=== PATIENT | female | born 1940 | race Two or more races ===

== ENCOUNTER 2024-05-01 11:05 | Inpatient (IN) | payer OTHER ==
[~2024-05-01] VITALS: Ht 152.4 cm; Wt 72.9 kg
[2024-05-01 11:17] VITALS: PULSE 97; RESP 16; O2SAT 91
--- NOTE | 2024-05-01 11:22 | ED.PDOC ---
GI ASSESSMENT HPI Comments 83 year old female brought in by EMS presents to the ED with a chief complaint of RUQ pain onset 4 days. Per EMS, patient was given Tylenol 1g in route. Patient states she was diagnosed with gallstones 2 years ago, was scheduled for a cholecystectomy but was not done due to her hypertension. Patient states she does not take HTN medication, usually elevates when she is at a hospital. Patient has been experiencing RUQ pain for the past 4 days as well as nausea, vomiting, diarrhea, and worsens when she eats. Denies chest pain, shortness of breath, fever, chills, headache, dizziness. No other symptoms or modifying factors present at this time. Chief Complaint: Abdominal Pain Time Seen by MD: 11:05 Primary Care Provider: UNKNOWN Reviewed Notes: Medications, Allergies Allergies: Coded Allergies: NO KNOWN ALLERGIES (Unverified , 05/01/24) Information Source: Patient, Emergency Med Personnel Mode of Arrival: EMS Timing: Days Duration: Since onset Prehospital treatment: None Quality: Sharp Severity: Moderate Recent: None Recent Hx of: None Pain Location: RUQ Modifying Factors: Nothing Associated sign and symptoms: Nausea, Vomiting, Diarrhea, Abdominal Pain Past Medical History PAST MEDICAL HISTORY: Gallstones Surgical History: Appendectomy RETAIL KEY HOLDER History: No Pertinent RETAIL KEY HOLDER History Family History Family History: Reviewed,noncontributory to illness, No family hx of Cancer, No family hx of DM, No family hx of Heart anjel, No family hx of HTN, No family hx ofKidney anjel, No family hx of Liver anjel, No family hx of Lung anjel, No family hx of Stroke Social History Smoker: Non-Smoker Alcohol: Denies ETOH Use Drugs: Denies Drug Use Lives In: Home Constitutional: denies: chills, diaphoresis, fatigue, fever, malaise, sweats, weakness, others EENTM: denies: blurred vision, double vision, ear bleeding, ear discharge, ear drainage, ear pain, ear ringing, eye pain, eye redness, hearing loss, mouth pain, mouth swelling, nasal discharge, nose bleeding, nose congestion, nose pain, photophobia, tearing, throat pain, throat swelling, voice changes, others Respiratory: denies: cough, hemoptysis, orthopnea, SOB at rest, shortness of breath, SOB with excertion, stridor, wheezing, others Cardiovascular: denies: chest pain, dizzy spells, diaphoresis, Dyspnea on exertion, edema, irregular heart beat, left arm pain, lightheadedness, palpitations, PND, syncope, others Gastrointestinal: reports: abdominal pain (RUQ), diarrhea, nausea, vomiting; denies: abdomen distended, blood streaked bowels, constipated, dysphagia, difficulty swallowing, hematemesis, melena, poor appetite, poor fluid intake, rectal bleeding, rectal pain, others Genitourinary: denies: abnormal vagina bleeding, burning, dyspareunia, dysuria, flank pain, frequency, hematuria, incontinence, pain, , vagina discharge, urgency, others Neurological: denies: dizziness, fainting, headache, left sided numbness, left sided weakness, numbness, paresthesia, pre-existing deficit, right sided numbn ess, right sided weakness, seizure, speech problems, tingling, tremors, weakness, others Musculoskeletal: denies: back pain, gout, joint pain, joint swelling, muscle pain, muscle stiffness, neck pain, others Integumetry: denies: bruises, change in color, change in hair/nails, dryness, laceration, lesions, lumps, rash, wounds, others Allergic/Immunocompromised: denies: Difficulty Healing, Frequent Infections, Hives, Itching, others Hematologic/Lymphatic: denies: anemia, blood clots, easy bleeding, easy bruising, swollen glands, others Endocrine: denies: excessive hunger, excessive sweating, excessive thirst, excessive urination, flushing, intolerance to cold, intolerance to heat, unexplained weight gain, unexplained weight loss, others Psychiatric: denies: anxiety, bipolar disorder, depression, hopeless, panic disorder, schizophrenia, sleepless, suicidal, others All Other Systems: Reviewed and Negative Physical Exam General Appearance: Moderate Distress, Normal HEENT: Normal ENT Inspection, Pharynx Normal, TMs Normal Neck: Full Range of Motion, Non-Tender, Normal, Normal Inspection Respiratory: Chest Non-Tender, Lungs Clear, No Accessory Muscle Use, No Respiratory Distress, Normal Breath Sounds Cardiovascular: No Edema, No JVD, No Murmur, No Gallop, Normal Peripheral Pulses, Regular Rate/Rhythm Breast Exam: Deferred Gastrointestinal: No Organomegaly, Non Tender, No Pulsatile Mass, Normal Bowel Sounds, Soft Genitalia: Deferred Pelvic: Deferred Rectal: Deferred Extremities: No calf tenderness, Normal capillary refill, Normal range of motion, Non-tender, No pedal edema Musculoskeletal : Apperance: Normal Neurologic: Alert, caul fat puller II-XII nml as Tested, No Motor Deficits, Normal Affect, Normal Mood, No Sensory Deficits Cerebellar Function: NOT DONE Reflexes: NOT DONE Skin: Dry, Normal Color, Warm Peripheral Pulses: 3+ Radial (R), 3+ Radial (L) Lymphatic: No Adenopathy Was a procedure done? Was a procedure done?: No GI differential Dx Differential Diagnosis: Constipation, Diverticular disease, Esophagitis, Gastritis/PUD, Gastroenteritis X-Ray, Labs, Meds, VS Vital Signs Date Time Temp Pulse Resp B/P (MAP) Pulse Ox O2 Delivery O2 Flow Rate FiO2 05/01/24 12:05 98.0 87 16 139/75 (96) 92 98.0 05/01/24 12:01 87 16 139/75 05/01/24 11:31 97 16 167/101 05/01/24 11:23 93 05/01/24 11:17 97 18 167/101 (123) 91 05/01/24 11:17 97 16 91 Room Air* 0 21 05/01/24 11:09 98.3 94 15 145/103 (117) 100 98.3 Lab Test 05/01/24 13:57 05/01/24 12:55 05/01/24 11:50 05/01/24 11:20 Range/Units Troponin I High Sensitivity Pending 6 </=34 ng/L Sodium Level 139 136-145 mmol/L Potassium Level 3.4 L 3.5-5.1 mmol/L Chloride Level 102 98-107 mmol/L Carbon Dioxide Level 28 20-31 mmol/L Anion Gap 9 5-15 Blood Urea Nitrogen 15 9-23 mg/dL Creatinine 0.84 0.550-1.02 mg/dL Glomerular Filtration Rate Calc 69 >90 mL/min BUN/Creatinine Ratio 17.9 10.0-20.0 Serum Glucose 120 H 74-106 mg/dL Lactic Acid Level 1.3 0.4-2.0 mmol/L Calcium Level 9.6 8.7-10.4 mg/dL Total Bilirubin 2.2 H 0.2-1.0 mg/dL Aspartate Amino Transferase (AST) 304 H 13-40 U/L Alanine Aminotransferase (ALT) 148 H 7-40 U/L Alkaline Phosphatase 110 46-116 U/L Total Protein 6.8 5.7-8.2 g/dL Albumin 4.4 3.2-4.8 g/dL Urine Color Yellow Yellow Urine Clarity Cloudy H Clear Urine pH 7.0 5.0-9.0 Urine Specific [place] 1.022 1.001-1.035 Urine Protein Trace H Negative Urine Ketones Negative Negative Urine Blood 1+ H Negative /uL Urine Nitrite 2+ H Negative Urine Bilirubin Negative Negative Urine Urobilinogen Normal Negative mg/dL Urine Leukocyte Esterase 3+ Negative /uL Urine RBC 16 0 - 4 /hpf Urine WBC Clumps Present None Seen /hpf Urine Microscopic WBC 305 H 0-5 /HPF Urine Squamous Epithelial Cells Few <5 /hpf Urine Bacteria Mod H None Seen /hpf Urine Mucus Few None Seen Urine Glucose Normal Normal mg/dL White Blood Count 16.3 H 4.4-10.8 10^3/uL Red Blood Count 4.56 4.0-5.20 10^6/uL Hemoglobin 14.3 12.2-16.2 g/dL Hematocrit 42.0 36.0-46.0 % Mean Corpuscular Volume 92.1 80.0-100.0 fL Mean Corpuscular Hemoglobin 31.4 28.0-32.0 pg Mean Corpuscular Hemoglobin Concent 34.1 32.0-36.0 g/dL Red Cell Distribution Width 13.2 11.8-14.3 % Platelet Count 214 140-450 10^3/uL Mean Platelet Volume 8.3 6.9-10.8 fL Neutrophils (%) (Auto) 82.0 H 37.0-80.0 % Lymphocytes (%) (Auto) 10.0 10.0-50.0 % Monocytes (%) (Auto) 7.5 0.0-12.0 % Eosinophils (%) (Auto) 0.1 0.0-7.0 % Basophils (%) (Auto) 0.4 0.0-2.0 % Neutrophils # (Auto) 13.4 H 1.6-8.6 10 ^3/uL Lymphocytes # (Auto) 1.6 0.4-5.4 10 ^3/uL Monocytes # (Auto) 1.2 0-1.3 10 ^3/uL Eosinophils # (Auto) 0 0-0.8 10 ^3/uL Basophils # (Auto) 0.1 0-0.2 10 ^3/uL Nucleated Red Blood Cells 0.0 % Lipase 30 12-53 U/L Current Medications Medications (Trade) Dose Ordered Sig/Matt Route Start Time Stop Time Status Last Admin Morphine Sulfate 4 mg ONCE ONCE IV 05/01/24 11:15 05/01/24 11:16 DC 05/01/24 11:31 Ondansetron HCl (Zofran) 4 mg ONCE ONCE IV 05/01/24 11:15 05/01/24 11:16 DC 05/01/24 11:30 Metronidazole 100 ml @ 100 mls/hr ONCE ONCE IV 05/01/24 12:15 05/01/24 13:14 DC 05/01/24 12:22 Sodium Chloride 1,000 ml @ 1,000 mls/hr Q1H ONCE IV 05/01/24 12:15 05/01/24 13:14 DC 05/01/24 12:21 Sodium Chloride 1,000 ml @ 150 mls/hr Q6H40M ONCE IV 05/01/24 12:15 05/01/24 18:54 05/01/24 13:53 Patient alert. Complaining of abdominal pain. Vitals stable. Answering questions. Establish intravenous access. Was given morphine. Was given Zofran. WBC elevated. Blood culture. Lactic acid. Was given Zosyn. Was given Flagyl. Reviewed his history. Explained to the patient. Continue to monitor. EKG reviewed does show changes. [place] [address] Ph: [phone] DIAGNOSTIC IMAGING Diagnostic Imaging Report : [id number] Signed PATIENT: SLY DELEON ACCT: [id number] UNIT: [id number] : 1940 LOC: ER ROOM / BED: / AGE / SEX: 83 / F ADM STATUS: REG ER SERVICE 1114 ORDERING PHYSICIAN: YAHIR RABAGO MD PROCEDURE(s): GBUS - GALLBLADDER REASON: stone ORDER NUMBER(s): [id number], ACCESSION NUMBER(s): [id number] INDICATION: stone TECHNIQUE: Multiple real-time sonographic images were obtained of the right upper quadrant. COMPARISON: None FINDINGS: The liver demonstrates heterogeneous echotexture without focal mass lesions. The liver measures 15cm. There is no intrahepatic or extrahepatic ductal dilatation. The common duct measures 0.4 mm. Gallstones is noted. The gallbladder wall measures 0.3 mm and is within normal limits. The right kidney measures 10 cm. The right kidney is normal in contour, size, and shape. The echogenicity is normal. There is no hydronephrosis. The pancreas is not well visualized due to overlying bowel gas. IMPRESSION: No sonographic evidence of gallstones or acute cholecystitis. ATED BY: LAYNE US MD DICTATED DATE/TIME: 05/01/24 121 SIGNED BY: LAYNE US MD SIGNED DATE/TIME: 05/01/241210 CC: Time of 1ST Reevaluation: 11:35 Reevaluation 1ST: Unchanged Patient Education/Counseling: Diagnosis, Treatment, Prognosis Family Education/Counseling: No Family Present Additional Information The following tests were ordered, and results were reviewed by me: EKG, CBC, LIPASE, UA, US GALLBLADDER Additional Information was gathered from interviewing the following independent historians: EMS I reviewed and agreed with the following test results read by other providers: US GALLBLADDER I discussed treatment and results with medical personnel and: patient Comprehensive systems review obtained and negative except for what is stated in the HPI. Departure 1 Departure Time of Disposition: 12:04 Impression: Primary Impression: Sepsis, unspecified organism Qualified Codes: A41.9 - Sepsis, unspecified organism Additional Impressions: Hypertensive urgency Acute abdominal pain Disposition: ADMITTED INPATIENT Admit to: Med Surg Condition: Guarded Critical Care Note Critical Care Time?: Yes (45 min-critical care time only) Critical care comment: Sepsis Stability Stability form required: No Heart Score Heart Score: Heart Score Response (Comments) Value History Slightly Suspicious 0 EKG Normal 0 Age >65 2 Risk Factors >3 or Hx ASHD 2 Troponin Normal limit 0 Total 4 I personally scribed for YAHIR RABAGO MD ([email or web address]) on 05/01/24 at 11:22. Electronically submitted by Kajal Cheatham ([email or web address]). I personally scribed for YAHIR RABAGO MD ([email or web address]) on 05/01/24 at 11:23. Electronically submitted by Kajal Cheatham ([email or web address]). I personally scribed for YAHIR RABAGO MD ([email or web address]) on 05/01/24 at 14:19. Electronically submitted by Kajal Cheatham ([email or web address]). YAHIR RABAGO MD May 01, 2024 11:22
--- NOTE | 2024-05-01 11:24 | ECG ---
[facility] Test Date: 2024-05-01 Test Time: 11:23:52 Pat Name: SLY DELEON Department: ED Room: [address] [place] [address] Gender: F Skidder Driver: CINDY : 1940 Requested By: YAHIR RABAGO Order Number: [id number] Reading MD: Dhiraj Kennedy Measurements Intervals [place] Rate: 93 P: 39 [place]: 159 QRS: 6 QRSD: 71 T: -21 QT: 354 QTc: 441 Interpretive Statements Sinus rhythm Inferior infarct, age indeterminate Electronically Signed On 05-04-2024 13:22:07 PDT by Dhiraj Kennedy Please click the below link to view image of tracing.
[2024-05-01] MEDS: ONDANSETRON HCL 4 MG/2 ML VIAL IV ONE (11:30)
[2024-05-01] MEDS: MORPHINE SULFATE 4 MG/ML SYR/VIAL IV ONE (11:31)
[2024-05-01 11:40] LABS: Basophils # (auto) 0.1 10 ^3/uL (0-0.2); Basophils % (auto) 0.4 % (0.0-2.0); Eosinophils # (auto) 0 10 ^3/uL (0-0.8); Eosinophils % (auto) 0.1 % (0.0-7.0); Hemoglobin 14.3 g/dL (12.2-16.2); Lymphocytes # (auto) 1.6 10 ^3/uL (0.4-5.4); Mean Corpuscular Hemoglobin 31.4 pg (28.0-32.0); Mean Corpuscular Hgb Conc. 34.1 g/dL (32.0-36.0); Mean Corpuscular Volume 92.1 fL (80.0-100.0); Monocytes # (auto) 1.2 10 ^3/uL (0-1.3); Monocytes % (auto) 7.5 % (0.0-12.0); Neutrophils # (auto) 13.4 10 ^3/uL (1.6-8.6); Platelet Count (auto) 214 10^3/uL (140-450); Red Blood Cells 4.56 10^6/uL (4.0-5.20); Red Cell Distribution Width 13.2 % (11.8-14.3); White Blood Cell 16.3 10^3/uL (4.4-10.8)
--- NOTE | 2024-05-01 12:14 | DVH ---
INDICATION: stone TECHNIQUE: Multiple real-time sonographic images were obtained of the right upper quadrant. COMPARISON: None FINDINGS: The liver demonstrates heterogeneous echotexture without focal mass lesions. The liver tonya ures 15cm. There is no intrahepatic or extrahepatic ductal dilatation. The common duct measures 0. 4 mm. Gallstones is noted. The gallbladder wall measures 0.3 mm and is within normal limits. The right kidney measures 10 cm. The right kidney is normal in contour, size, and shape. The echogen icity is normal. There is no hydronephrosis. The pancreas is not well visualized due to overlying bowel gas. IMPRESSION: No sonographic evidence of gallstones or acute cholecystitis.
[2024-05-01] MEDS: SODIUM CHLORIDE 0.9% 1,000 ML IV ONE ×2 (12:21→13:53)
[2024-05-01] MEDS: metroNIDAZOLE 500MG/100ML 100 ML IV ONE (12:22)
[2024-05-01 12:45] LABS: Urine Bacteria MOD /hpf (None Seen); Urine Blood 1+ /uL (Negative); Urine Mucus FEW (None Seen); Urine Protein, UAD TRACE (Negative); Urine Specific Gravity 1.022 (1.001-1.035); Urine Squamous Epithelial Cell FEW /hpf (<5); Urine Urobilinogen Normal (Negative); Urine WBC 305 /HPF (0-5); Urine WBC Clumps PRESENT /hpf (None Seen)
[2024-05-01 12:52] LABS: Urine Clarity Cloudy (Clear); Urine Color Yellow (Yellow)
[2024-05-01 13:29] LABS: Albumin 4.4 g/dL (3.2-4.8); Alkaline Phosphatase 110 U/L (46-116); Anion Gap 9 (5-15); BUN/Creatinine Ratio 17.9 (10.0-20.0); Blood Urea Nitrogen 15 mg/dL (9-23); Calcium 9.6 mg/dL (8.7-10.4); Carbon Dioxide 28 mmol/L (20-31); Chloride 102 mmol/L (98-107); Sodium 139 mmol/L (136-145); Total Protein 6.8 g/dL (5.7-8.2)
[2024-05-01 13:33] LABS: Alanine Aminotransferase 148 U/L (7-40); Aspartate Aminotransferase 304 U/L (13-40); Bilirubin, Total 2.2 mg/dL (0.2-1.0); Glucose 120 mg/dL (74-106); Potassium 3.4 mmol/L (3.5-5.1)
[2024-05-01] MEDS: IOHEXOL 300 MG/ML 100ML BOTTLE IJ ONE (16:50)
--- NOTE | 2024-05-01 17:25 | DVH ---
EXAM: CT Abdomen and Pelvis With Intravenous Contrast CLINICAL INDICATION: rule out gi pathology TECHNIQUE: Axial computed tomography images of the abdomen and pelvis with intravenous contrast. Th is CT exam was performed using one or more of the following dose reduction techniques: automated exp osure control, adjustment of the mA and/or kV according to patient size, and/or use of iterative pedro nstruction technique. CONTRAST: COMPARISON: None FINDINGS: LUNG BASES: Bibasilar atelectasis or scarring. ABDOMEN: LIVER: Unremarkable. No mass. GALLBLADDER AND BILE DUCTS: Distended gallbladder with surrounding fat stranding May suggest acute cholecystitis. Clinical correlation is recommended. Further evaluation with targeted ultrasound may b e beneficial. No ductal dilation. PANCREAS: Unremarkable. No mass. No ductal dilation. SPLEEN: Unremarkable. No splenomegaly. ADRENALS: Unremarkable. No mass. KIDNEYS AND URETERS: Unremarkable. No solid mass. No hydronephrosis. STOMACH AND BOWEL: Fecal retention in the colon consistent with constipation. Colonic diverticulos is without acute diverticulitis. No obstruction. PELVIS: APPENDIX: No findings to suggest acute appendicitis. BLADDER: Unremarkable. No mass. REPRODUCTIVE: Unremarkable as visualized. ABDOMEN and PELVIS: INTRAPERITONEAL SPACE: Unremarkable. No free air. No significant fluid collection. BONES/JOINTS: No acute fracture. No dislocation. SOFT TISSUES: Unremarkable. VASCULATURE: Unremarkable. No abdominal aortic aneurysm. LYMPH NODES: Unremarkable. No enlarged lymph nodes. OTHER FINDINGS: . . IMPRESSION: 1. Distended gallbladder with surrounding fat stranding May suggest acute cholecystitis. Clinical co rrelation is recommended. Further evaluation with targeted ultrasound may be beneficial. 2. Fecal retention in the colon consistent with constipation. 3. Colonic diverticulosis without acute diverticulitis.
[2024-05-01 18:02] VITALS: BP 161/79; PULSE 89; RESP 18; TEMP 98.3; O2SAT 96
[2024-05-01 18:15] VITALS: BP 161/79; PULSE 89; RESP 18; TEMP 98.3; O2SAT 96
[2024-05-01 20:00] VITALS: PULSE 91; RESP 17; O2SAT 91
[2024-05-01] MEDS ORDERED: BIMA0.01 EACHEYE (20:01)
[2024-05-01] MEDS: LACTULOSE 20Gm/30ML SOLN PO ONE (20:10)
--- NOTE | 2024-05-01 20:29 | DVHHPRES ---
History of Present Illness Resident Creating Document: SAMRA ARMAS RESIDENT History of Present Illness 83-year-old female with PMHx of gallstones, overactive bladder and appendectomy presents with 4 days of RUQ abdominal pain associated with nausea, vomiting, and diarrhea. Pain reportedly worsens when upright. She denies fevers, chills, chest pain, SOB, or dizziness. Patient is with a fry for intermitent catheterization. She has not been taking any medications at home aside from eyedrops. No recent antibiotic use. Symptoms have been improving since admission. She was evaluated with labs and imaging. WBC on admission was elevated at 15.6 trending down to 11.9. Total bilirubin was elevated at 2.6 with ALP 138. AST/ALT mildly elevated. CT A/P with IV contrast showed distended gallbladder with surrounding fat stranding concerning for acute cholecystitis. No ductal dilation. Gallbladder ultrasound was non-diagnostic. MRCP pending to further evaluate for choledocholithiasis. Pulmonary: COPD Heme/Onc: B12 deficiency Endocrine: Osteoporosis Review of Systems Constitutional: No: Fever, Chills, Sweats, Weakness, Malaise, Other Eyes: No: Pain, Vision change, Conjunctivae inflammation, Eyelid inflammation, Other, Redness ENT: No: Ear pain, Ear discharge, Nose pain, Nose discharge, Nose congestion, Mouth pain, Mouth swelling, Throat pain, Throat swelling, Other Respiratory: No: Cough, Dry, Shortness of breath, SOB with excertion, Wheezing, Hemoptysis, Pleuritic Pain, Sputum, Wheezing, Other Cardiovascular: No: Chest Pain, Palpitations, Orthopnea, Paroxysmal Noc. Dyspnea, Edema, Lt Headedness, Other Gastrointestinal: Nausea, Vomiting, Abdominal Pain, Diarrhea; No: Constipation, Melena, Hematochezia, Other Genitourinary: Dysuria; No Frequency, No Incontinence, No Hematuria, No Retention, No Other Musculoskeletal: No: other, neck pain, shoulder pain, arm pain, back pain, hand pain, leg pain, foot pain Skin: No: Rash, Lesions, Jaundice, Bruising, Other Neurological: No: Weakness, Numbness, Incoordination, Change in speech, Confusion, Seizures, Other Allergies: Coded Allergies: NO KNOWN ALLERGIES (Unverified , 05/01/24) Medications Current Medications Medications Dose Ordered Sig/Matt Route Start Time Stop Time Status Last Admin Dose Admin Acetaminophen/ Hydrocodone Bitart 1 tab Q4HPRN PRN PO 05/01/24 16:45 Piperacillin Sod/ Tazobactam Sod 100 ml @ 25 mls/hr Q8H IV 05/01/24 22:00 Sodium Chloride 1,000 ml @ 75 mls/hr [id number] IV 05/01/24 16:45 Exam Vital Signs Vital Signs Date Time Temp Pulse Resp B/P (MAP) Pulse Ox O2 Delivery O2 Flow Rate FiO2 05/01/24 18:15 98.3 89 18 161/79 (106) 96 98.3 05/01/24 18:02 Room Air* 0 21 General Appearance: Alert, Oriented X3, Cooperative HEENT: Atraumatic, PERRLA, Other (mild icteric ) Respiratory: Clear to auscultation, Normal air movement Cardiovascular: Regular rate Abdominal: Normal bowel sounds, Other (garcia positive ) Extremities: No clubbing, No cyanosis Skin: No rashes Neuro: Normal gait Labs/Xrays Labs Test 05/01/24 20:09 05/01/24 13:57 05/01/24 12:55 05/01/24 11:50 Range/Units Troponin I High Sensitivity 5 </=34 ng/L Lactic Acid Level 1.3 0.4-2.0 mmol/L Urine Color Yellow Yellow Urine Clarity Cloudy H Clear Urine pH 7.0 5.0-9.0 Urine Specific [place] 1.022 1.001-1.035 Urine Protein Trace H Negative Urine Ketones Negative Negative Urine Blood 1+ H Negative /uL Urine Nitrite 2+ H Negative Urine Bilirubin Negative Negative Urine Urobilinogen Normal Negative mg/dL Urine Leukocyte Esterase 3+ Negative /uL Urine RBC 16 0 - 4 /hpf Urine WBC Clumps Present None Seen /hpf Urine Microscopic WBC 305 H 0-5 /HPF Urine Squamous Epithelial Cells Few <5 /hpf Urine Bacteria Mod H None Seen /hpf Urine Mucus Few None Seen Urine Glucose Normal Normal mg/dL Test 05/01/24 11:20 Range/Units Eosinophils (%) (Auto) 0.1 0.0-7.0 % Eosinophils # (Auto) 0 0-0.8 10 ^3/uL Basophils # (Auto) 0.1 0-0.2 10 ^3/uL Nucleated Red Blood Cells 0.0 % Lipase 30 12-53 U/L Assessment/Plan Assessment/Plan #Sepsis #Acute cholecystitis #Rule out choledocholithiasis #Complicated UTI #Chronic user fry catheter #Hypertensive crisis #Hypokalemia Admit Med/surg NPO except for meds Zosyn IV Pending MRCP Surgery consult Rock and morphine for pain Lactulose Hydralazine PRN BP> 170 Hold on in other BP due to possible sepsis Case discussed with Dr Diamond Plan discussed with: Patient, Other (rn) My Orders Orders - SAMRA ARMAS Procedure Category Date Status Time Admit ADMIT 05/01/24 Transmitted 16:34 Npo Except For [facility] 05/01/24 In Process Medications 16:42 Hydrocodone-Acet PHA 05/01/24 In Process 5/325mg Tab (Rock 16:45 Piperacillin-Tazob PHA 05/01/24 In Process 3.375gm (Zosyn 3.375g 22:00 Sodium Chloride 0.9% PHA 05/01/24 In Process 16:45 Ct Ab Pel With Iv Con CT 05/01/24 Resulted Only 16:42 Pharmacy [facility] 05/01/24 In Process Clarification: 17:01 Mrcp Mri MRI 05/01/24 Taken 17:14 Complete Blood Count LAB 05/01/24 In Process 19:22 Comprehensive LAB 05/01/24 In Process Metabolic Panel 19:22 * Surgical Consult CONS 05/01/24 Transmitted Complete Blood Count LAB 05/02/24 Verified 04:00 Comprehensive LAB 05/02/24 Verified Metabolic Panel 04:00 Hemoglobin A1c LAB 05/02/24 Verified 04:00 Lactic Acid W/ Reflex LAB 05/02/24 Verified Order 04:00 Lipase LAB 05/02/24 Verified 04:00 Lipid Panel LAB 05/02/24 Verified 04:00 Magnesium LAB 05/02/24 Verified 04:00 Phosphorus LAB 05/02/24 Verified 04:00 Thyroid Stimulating LAB 05/02/24 Verified Hormone 04:00 PTPTT LAB 05/02/24 Verified 04:00 Vitamin B12 LAB 05/02/24 Verified 04:00 Vitamin D, 25-Hydroxy LAB 05/02/24 Verified 04:00 Date of Service: May 01, 2024 Billing Provider: SHWETHA DIAMOND MD Common Visit Codes: 28976-TWMZUXA INP/OBS CARE (HIGH) Secondary Visit Codes: 28048-[id number] CARE PLAN 30 MINUTES SAMRA ARMAS May 01, 2024 20:28 SHWETHA DIAMOND MD May 02, 2024 15:26
[2024-05-01 20:36] LABS: Albumin 4.1 g/dL (3.2-4.8); Anion Gap 10 (5-15); BUN/Creatinine Ratio 17.9 (10.0-20.0); Blood Urea Nitrogen 14 mg/dL (9-23); Calcium 9.1 mg/dL (8.7-10.4); Carbon Dioxide 27 mmol/L (20-31); Chloride 102 mmol/L (98-107); Sodium 139 mmol/L (136-145); Total Protein 6.7 g/dL (5.7-8.2)
[2024-05-01 20:37] LABS: Alanine Aminotransferase 235 U/L (7-40); Alkaline Phosphatase 138 U/L (46-116); Aspartate Aminotransferase 315 U/L (13-40); Bilirubin, Total 2.6 mg/dL (0.2-1.0); Glucose 117 mg/dL (74-106); Potassium 3.3 mmol/L (3.5-5.1)
[2024-05-01 20:39] LABS: Basophils # (auto) 0.1 10 ^3/uL (0-0.2); Basophils % (auto) 0.4 % (0.0-2.0); Eosinophils # (auto) 0.1 10 ^3/uL (0-0.8); Eosinophils % (auto) 0.6 % (0.0-7.0); Hematocrit 38.8 % (36.0-46.0); Hemoglobin 13.3 g/dL (12.2-16.2); Lymphocytes # (auto) 1.3 10 ^3/uL (0.4-5.4); Lymphocytes % (auto) 10.6 % (10.0-50.0); Mean Corpuscular Hemoglobin 31.4 pg (28.0-32.0); Mean Corpuscular Hgb Conc. 34.3 g/dL (32.0-36.0); Mean Corpuscular Volume 91.6 fL (80.0-100.0); Monocytes # (auto) 0.9 10 ^3/uL (0-1.3); Monocytes % (auto) 7.2 % (0.0-12.0); Neutrophils # (auto) 9.7 10 ^3/uL (1.6-8.6); Neutrophils % (auto) 81.2 % (37.0-80.0); Platelet Count (auto) 193 10^3/uL (140-450); Red Blood Cells 4.24 10^6/uL (4.0-5.20); Red Cell Distribution Width 13.4 % (11.8-14.3); White Blood Cell 11.9 10^3/uL (4.4-10.8)
[2024-05-01 21:00] VITALS: BP 156/75; PULSE 91; RESP 17; TEMP 98.3; O2SAT 91
[2024-05-01] MEDS ORDERED: hydrALAZINE HCL 20 MG/ML VL IV PRN (22:30)
[2024-05-01] MEDS: PIPERACILLIN-TAZOB 3.375GM 100 ML IV SCH (22:30)
[2024-05-02] VITALS (7 sets, daily range): BP systolic 128–155; BP diastolic 73–79; PULSE 79–88; RESP 14–20; TEMP 97.2–98.9; O2SAT 88–98
--- NOTE | 2024-05-02 03:53 | DVH ---
[id number] MRI MRCP MRI Attending Name: SAMRA TIM COMPARISON: Ultrasound 05/01/2024, CT 05/01/2024 INDICATION: rule out choledocolithiasis TECHNIQUE: MRCP was performed without the use of intravenous contrast using a MRI imaging system. Three-dimensional MRCP was performed using maximum intensity projection reconstruction on an [employer] workstation under concurrent supervision. FINDINGS: Gallbladder is mildly distended with mild pericholecystic fluid. There is cholelithiasis with multipl e small calculi in the distal cystic duct. The common bile duct estimated 0.5 cm. There is no eviden ce of pancreatic ductal dilatation. 1.4 cm cystic lesion in the ventral distal pancreatic body. The l iver, spleen, adrenal glands, and kidneys appear otherwise unremarkable. IMPRESSION: 1. Cholelithiasis with multiple small calculi within the distal cystic duct, pericholecystic fluid. Findings are consistent with acute cholecystitis. 2. 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 HS:Y
[2024-05-02 06:09] LABS: Basophils # (auto) 0.1 10 ^3/uL (0-0.2); Basophils % (auto) 0.5 % (0.0-2.0); Eosinophils # (auto) 0.2 10 ^3/uL (0-0.8); Eosinophils % (auto) 1.9 % (0.0-7.0); Hemoglobin 12.8 g/dL (12.2-16.2); Lymphocytes # (auto) 1.5 10 ^3/uL (0.4-5.4); Mean Corpuscular Hemoglobin 31.2 pg (28.0-32.0); Mean Corpuscular Hgb Conc. 33.6 g/dL (32.0-36.0); Mean Corpuscular Volume 92.9 fL (80.0-100.0); Monocytes # (auto) 0.8 10 ^3/uL (0-1.3); Monocytes % (auto) 7.6 % (0.0-12.0); Neutrophils # (auto) 8.4 10 ^3/uL (1.6-8.6); Platelet Count (auto) 169 10^3/uL (140-450); Red Blood Cells 4.09 10^6/uL (4.0-5.20)
[2024-05-02 06:20] LABS: INR 1.08 (0.9-1.15); Prothrombin Time 11.4 sec (9.3-11.8)
[2024-05-02 06:28] LABS: Albumin 3.8 g/dL (3.2-4.8); Anion Gap 9 (5-15); BUN/Creatinine Ratio 12.7 (10.0-20.0); Blood Urea Nitrogen 10 mg/dL (9-23); Calcium 8.8 mg/dL (8.7-10.4); Carbon Dioxide 28 mmol/L (20-31); Chloride 103 mmol/L (98-107); Cholesterol 147 mg/dL (< 200); Glucose 98 mg/dL (74-106); HDL Cholesterol 54 mg/dL (40-59); LDL Cholesterol 72 mg/dL (< 100); Magnesium 1.9 mg/dL (1.6-2.6); Sodium 140 mmol/L (136-145); Total Protein 6.2 g/dL (5.7-8.2); Triglycerides 60 mg/dL (< 150)
[2024-05-02 06:29] LABS: Phosphorus 2.7 mg/dL (2.4-5.1)
[2024-05-02 06:30] LABS: Alanine Aminotransferase 172 U/L (7-40); Alkaline Phosphatase 119 U/L (46-116); Aspartate Aminotransferase 169 U/L (13-40); Bilirubin, Total 1.8 mg/dL (0.2-1.0); Potassium 3.1 mmol/L (3.5-5.1)
[2024-05-02 07:17] LABS: Lipase 26 U/L (12-53)
[2024-05-02] MEDS: ERGOCALCIFEROL 50,000 UNIT(1.25MG) CAP PO SCH (10:02)
--- NOTE | 2024-05-02 11:09 | DVHPNRES ---
Progress Note Date Seen: May 02, 2024 Resident Creating Document: SAMRA ARMAS RESIDENT Has the PT tested + for MRSA If YES, has PT been informed?: No Medical Necessity Reason Pt with a Central, PICC or Fol: No Subjective Review of Systems An 83-year-old female with PMHx of gallstones, overactive bladder and appendectomy presents with 4 days of RUQ abdominal pain associated with nausea, vomiting, and diarrhea. Pain reportedly worsens when upright. She denies fevers, chills, chest pain, SOB, or dizziness. Patient is with a fry for intermitent catheterization. She has not been taking any medications at home aside from eyedrops. No recent antibiotic use. Symptoms have been improving since admission. She was evaluated with labs and imaging. WBC on admission was elevated at 15.6 trending down to 11.9. Total bilirubin was elevated at 2.6 with ALP 138. AST/ALT mildly elevated. CT A/P with IV contrast showed distended gallbladder with surrounding fat stranding concerning for acute cholecystitis. No ductal dilation. Gallbladder ultrasound was non-diagnostic. MRCP: 1. Cholelithiasis with multiple small calculi within the distal cystic duct, pericholecystic fluid. Findings are consistent with acute cholecystitis and 1.4 cm cystic lesion in the ventral distal pancreatic body favors intraductal papillary mucinous neoplasm. Surgery will do cholecystectomy after cardiology clearance and will need f/u due to possible pancreatic intraductal papillary mucinous neoplasm. Pulmonary: COPD Vit D deficiency Endocrine: Osteoporosis Objective vital signs Vital Sign Date Time Temp Pulse Resp B/P (MAP) Pulse Ox O2 Delivery O2 Flow Rate FiO2 05/02/24 09:00 98.0 79 20 128/79 (95) 94 98.0 05/02/24 08:00 Room Air* 0 21 Total Intake and Output 05/01/24 05/01/24 05/02/24 15:00 23:00 07:00 Intake Total 100 ml Balance 100 ml medications Current Medications Medications Dose Ordered Sig/Matt Route Start Time Stop Time Status Last Admin Dose Admin Acetaminophen/ Hydrocodone Bitart 1 tab Q4HPRN PRN PO 05/01/24 16:45 Piperacillin Sod/ Tazobactam Sod 100 ml @ 25 mls/hr Q8H IV 05/01/24 22:00 05/02/24 05:59 25 MLS/HR Sodium Chloride 1,000 ml @ 75 mls/hr [id number] IV 05/01/24 16:45 Hydralazine HCl 10 mg Q6HP PRN IV 05/01/24 22:30 Ergocalciferol 50,000 unit Q7D PO 05/02/24 07:00 05/02/24 10:02 50,000 UNIT Examination General Appearance: Alert, Oriented X3, Cooperative HEENT: Atraumatic, PERRLA, Other (mild icteric ) Respiratory: Clear to auscultation, Normal air movement Cardiovascular: Regular rate Abdominal: Normal bowel sounds, Other (Matos's positive ) Extremities: No clubbing, No cyanosis Skin: No rashes Neuro: Normal gait laboratory and microbiology Laboratory Tests 05/02/24 05:52 Test 05/02/24 05:52 Range/Units Serum Glucose 98 74-106 mg/dL Labs and/or images reviewed: Labs reviewed by me, Image(s) reviewed by me Problem List/Assessment/Plan Problem List/Assessment/Plan #Sepsis due to: #Acute cholecystitis #Ruled out choledocholithiasis #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 #Complicated UTI #Hypertensive crisis #Hypokalemia #Constipation #Vitamin D deficiency #Transaminitis #Hyperbilirubinemia Clear liquid diet Cardiology clearance for cholecystectomy per Dr Zendejas Pending ECHO report Zosyn IV Potassium IV [place] and morphine for pain Losartan 50 mg Hydralazine PRN BP> 170 Goals of care discussed with the patient for 20 minutes; full code Case discussed with Dr Steele Plan discussed with: Patient, Other (rn) My Orders My Orders Orders - SAMRA ARMAS RESIDENT Procedure Category Date Status Time Admit ADMIT 05/01/24 Transmitted 16:34 Npo Except For [facility] 05/01/24 In Process Medications 16:42 Hydrocodone-Acet PHA 05/01/24 In Process 5/325mg Tab ([place] 16:45 Piperacillin-Tazob PHA 05/01/24 In Process 3.375gm (Zosyn 3.375g 22:00 Sodium Chloride 0.9% PHA 05/01/24 In Process 16:45 Ct Ab Pel With Iv Con CT 05/01/24 Resulted Only 16:42 Pharmacy [facility] 05/01/24 In Process Clarification: 17:01 Mrcp Mri MRI 05/01/24 Resulted 17:14 Hydralazine Injection PHA 05/01/24 In Process (Apresoline Inject 22:30 Urine Bacterial KAMRAN 05/01/24 In Process Culture 22:28 Carbohydrate Antigen LAB 05/02/24 In Process 19-9 Ergocalciferol PHA 05/02/24 In Process (Vitamin D 50,000 07:00 Potassium Chloride PHA 05/02/24 In Process (Potassium Chloride). 07:15 * Gi Dvh Can Reconditioner CONS 05/02/24 Transmitted 10:17 * Cardiology Consult CONS 05/02/24 Transmitted 10:50 * Surgical Consult CONS 05/02/24 Transmitted 10:50 Addendum Addendum Addendum I was physically present for the stein portions of the service provided to patient by THE RESIDENT. I have reviewed the documentation, discussed the case with resident and agree with the resident's documentation except as noted. Also the patient's clinical case was discussed with the patient's nurse. This medical document was created using an electronic medical record system with computerized dictation system. Although this document has been carefully reviewed, there might still be some phonetic and typographical errors. These areas are purely typographical due to imperfections of the software programs, and do not reflect any compromise in the patient's medical care. Late signature. Date of Service: May 02, 2024 Billing Provider: JOLENE STEELE MD Common Visit Codes: [id number] INP/OBS CARE(HIGH) Secondary Visit Codes: [id number] CARE PLAN 30 MINUTES (20 minutes) SAMRA ARMAS May 02, 2024 11:09 JOLENE STEELE MD May 02, 2024 19:50
--- NOTE | 2024-05-02 11:32 | DVHINCON2 ---
SURGICAL CONSULTATION HISTORY OF PRESENT ILLNESS: The patient is an 83-year-old female presenting with right upper quadrant abdominal pain, which has been recurring, onset of constant pain approximately 4 days ago. The patient's pain is accompanied with nausea, vomiting and diarrhea. The patient had been evaluated previously for gallstones. She was admitted and her workup is consistent with cholelithiasis and cholecystitis. REVIEW OF SYSTEMS: Without contributory information to the current illness. SOCIAL HISTORY: The patient is nonsmoker, nondrinker, uses no drugs. ALLERGIES: Has no known medicinal allergies. PHYSICAL EXAMINATION: GENERAL: Well-developed, normal female, no acute distress. HEENT: Pupils are equal, round, react to light equally. Sclerae nonicteric. Extraocular motions intact. Uvula midline. NECK: Trachea midline. Carotids are full without bruits. Jugular veins are collapsed. HEART: Regular rate and rhythm without murmur or gallop. ABDOMEN: Exquisitely tender in the right upper quadrant. No guarding, no rebound tenderness. No palpable masses or organomegalies. The patient has midline scar from previous operation for a "ruptured" appendix, otherwise, no abdominal surgeries in the past. LABORATORY DATA: Shows white count of 16.3 on admission with a left shift of neutrophils 82.0%. The patient's white count today is down to 11, with a normal differential. Her H and H is stable and platelet count is adequate at 169. The patient's coagulation profile shows a PT of 11.4 with an INR of 1.08. On chemistry, she was found to have elevated hemoglobin A1c at 5.8. The patient has a bilirubin on admission of 2.6, which has normalized since then. The patient had an imaging done by means of gallbladder ultrasound, which was negative for gallstones or cholecystitis. Subsequently, the patient underwent an MRCP, which documents small stones in the gallbladder. There is no report of choledocholithiasis. The patient has findings of cholecystitis. There is also a 1.4 cm cystic lesion in the ventral distal pancreatic body, which is favoring intraductal papillary mucinous neoplasm. ASSESSMENT AND PLAN: Due to the patient's septic picture and cholecystitis, we will have a Cardiology consultation preoperatively and schedule her for laparoscopic cholecystectomy. The patient's operation, risks and potential complications have been explained in detail. She was made aware of the presence of a cystic lesion in the distal part of her pancreas that will require close observation and possibly intervention, which will need to be done at a higher level of care center. The patient is fully aware of the fact that she has an inflamed and infected gallbladder and a mass in the pancreas and the only treatment she will receive at this institution is a cholecystectomy for the treatment of her cholelithiasis and cholecystitis. MD TE Castillo/JLUIS TID: [id number] RECEIPT: [id number]
[2024-05-02] MEDS: POTASSIUM CHLORIDE 40 MEQ, LIDOCAINE 1% (LOCAL ANESTH.) 4 ML in SODIUM CHL 0.9% 250 ML IV ONE (11:56)
[2024-05-02] MEDS: SODIUM CHLORIDE 0.9% 1,000 ML IV SCH (11:56)
--- NOTE | 2024-05-02 14:14 | DVHINCON2 ---
Date Seen: May 02, 2024 Referring Physician MD Randell Reason for Consultation Cardiac risk stratification History of Present Illness This is a pleasant 83-year-old female who presented to the emergency room via EMS with a chief complaint of abdominal pain for four days. Localizes the abdo april pain to the right upper quadrant and associated with nausea, vomiting, and diarrhea. She has been diagnosed with acute cholecystitis now referred for cardiology evaluation for cardiac risk stratification for possible surgical intervention. Denies chest pain, palpitations, diaphoresis, SOB, dizziness, or syncopal events. Denies exertional angina or dyspnea on exertion. States there are three flights of stairs at her mobile home and she is able to ambulate with any restraints or symptoms. She underwent a 12 lead electrocardiogram revealing a sinus rhythm with nonspecific changes to inferior leads. Significant medical history includes hypertension, COPD, osteoporosis, cholelithiasis, GERD, and obesity. Past Medical History Past medical history reviewed. No other significant than mentioned above. Past Surgical History Appendectomy Eye surgery Family History: Cardiovascular disease G8 FATHER Staph infection G8 MOTHER Family History Family history reviewed. Social History Denies the use of illicit drugs, alcohol, or tobacco use. Allergies: Coded Allergies: NO KNOWN ALLERGIES (Unverified , 05/01/24) Home Meds Reported Medications Bimatoprost (Lumigan) 0.01 % Latrice, 1 DROP EACHEYE QPM, #2.5 ML 3 Refills 05/01/24 Home Meds Home medications reviewed. Current Medications Current Medications Medications (Trade) Dose Ordered Sig/Matt Route PRN Reason Start Time Stop Time Status Last Admin Acetaminophen/ Hydrocodone Bitart ([place] 5/325MG Tab) 1 tab Q4HPRN PRN PO MODERATE PAIN (4-6 PAIN SCALE) 05/01/24 16:45 Piperacillin Sod/ Tazobactam Sod 100 ml @ 25 mls/hr Q8H IV 05/01/24 22:00 05/02/24 05:59 Sodium Chloride 1,000 ml @ 75 mls/hr [id number] IV 05/01/24 16:45 05/02/24 11:56 Hydralazine HCl (Apresoline Injection) 10 mg Q6HP PRN IV SBP>170 05/01/24 22:30 Ergocalciferol (Vitamin D 50,000 Unit) 50,000 unit Q7D PO 05/02/24 07:00 05/02/24 10:02 Review of Systems Constitutional: No symptom reported Ears, Nose, & Throat: No symptom reported Eyes: No symptom reported Neurological: No symptoms reported Pulmonary/Respiratory: No symptom reported Cardiovascular: No symptom reported Gastrointestinal: Abdominal pain/N/V/D Genitourinary: No symptom reported Musculoskeletal: No symptom reported Skin: No symptom reported Psychiatric: No symptom reported Endocrine: No symptom reported Hemotologic/Lymphatic: No symptom reported Vital Signs Vital Signs Date Time Temp Pulse Resp B/P (MAP) Pulse Ox O2 Delivery O2 Flow Rate FiO2 05/02/24 13:00 97.8 79 14 150/79 (102) 88 97.8 05/02/24 08:00 Room Air* 0 21 Physical Exam General Appearance: Cooperative. Well developed. Obese. In no acute distress Head Exam: Normal inspection Neck Exam: Normal inspection. Non-tender. Normal alignment Pulmonary/Respiratory: Chest non-tender. Clear bilateral breath sounds Cardiovascular/Chest: Regular rate and rhythm. S1, S2. Sinus rhythm with nonspecific inferior T-wave inversion. No murmurs. No JVD. Peripheral Pulses: 2+ Radial (R). 2+ Radial (L). 2+ Pedal (R). 2+ Pedal (L) Abdominal Exam: Normal bowel sounds. Soft. RUQ tender Ankle Exam: Negative ankle edema Lower extremities: Negative lower extremity edema Neuro/Mental Status: A&O x4. Coherent Thoughts/Psych: Normal thought pattern. Appropriate mood and affect. Good judgement and insight Appearance: In no acute distress Skin Exam: Normal inspection. Normal color. Warm. Dry Labs/Diagnostic Data Labs Test 05/02/24 05:52 05/01/24 13:57 05/01/24 11:50 Range/Units White Blood Count 11.0 H 4.4-10.8 10^3/uL Red Blood Count 4.09 4.0-5.20 10^6/uL Hemoglobin 12.8 12.2-16.2 g/dL Hematocrit 38.0 36.0-46.0 % Mean Corpuscular Volume 92.9 80.0-100.0 fL Mean Corpuscular Hemoglobin 31.2 28.0-32.0 pg Mean Corpuscular Hemoglobin Concent 33.6 32.0-36.0 g/dL Red Cell Distribution Width 13.0 11.8-14.3 % Platelet Count 169 140-450 10^3/uL Mean Platelet Volume 8.1 6.9-10.8 fL Neutrophils (%) (Auto) 76.0 37.0-80.0 % Lymphocytes (%) (Auto) 14.0 10.0-50.0 % Monocytes (%) (Auto) 7.6 0.0-12.0 % Eosinophils (%) (Auto) 1.9 0.0-7.0 % Basophils (%) (Auto) 0.5 0.0-2.0 % Neutrophils # (Auto) 8.4 1.6-8.6 10 ^3/uL Lymphocytes # (Auto) 1.5 0.4-5.4 10 ^3/uL Monocytes # (Auto) 0.8 0-1.3 10 ^3/uL Eosinophils # (Auto) 0.2 0-0.8 10 ^3/uL Basophils # (Auto) 0.1 0-0.2 10 ^3/uL Nucleated Red Blood Cells 0.0 % Prothrombin Time 11.4 9.3-11.8 sec Prothrombin Time INR 1.08 0.9-1.15 Activated Partial Thromboplast Time 29.0 24.5-34.5 SEC Sodium Level 140 136-145 mmol/L Potassium Level 3.1 L 3.5-5.1 mmol/L Chloride Level 103 98-107 mmol/L Carbon Dioxide Level 28 20-31 mmol/L Anion Gap 9 5-15 Blood Urea Nitrogen 10 9-23 mg/dL Creatinine 0.79 0.550-1.02 mg/dL Glomerular Filtration Rate Calc 75 >90 mL/min BUN/Creatinine Ratio 12.7 10.0-20.0 Serum Glucose 98 74-106 mg/dL Hemoglobin A1c 5.8 H <5.7 % A1C Lactic Acid Level 0.9 0.4-2.0 mmol/L Calcium Level 8.8 8.7-10.4 mg/dL Phosphorus Level 2.7 2.4-5.1 mg/dL Magnesium Level 1.9 1.6-2.6 mg/dL Total Bilirubin 1.8 H 0.2-1.0 mg/dL Aspartate Amino Transferase (AST) 169 H 13-40 U/L Alanine Aminotransferase (ALT) 172 H 7-40 U/L Alkaline Phosphatase 119 H 46-116 U/L Total Protein 6.2 5.7-8.2 g/dL Albumin 3.8 3.2-4.8 g/dL Triglycerides Level 60 < 150 mg/dL Cholesterol Level 147 < 200 mg/dL LDL Cholesterol 72 < 100 mg/dL HDL Cholesterol 54 40-59 mg/dL Lipase 26 12-53 U/L Vitamin B12 Level 456 211-911 pg/mL Vitamin D 25-Hydroxy 17.9 L 30.0-100 ng/mL Thyroid Stimulating Hormone (TSH) 0.55 0.55-4.78 uIU/mL Troponin I High Sensitivity 5 </=34 ng/L Urine Color Yellow Yellow Urine Clarity Cloudy H Clear Urine pH 7.0 5.0-9.0 Urine Specific [place] 1.022 1.001-1.035 Urine Protein Trace H Negative Urine Ketones Negative Negative Urine Blood 1+ H Negative /uL Urine Nitrite 2+ H Negative Urine Bilirubin Negative Negative Urine Urobilinogen Normal Negative mg/dL Urine Leukocyte Esterase 3+ Negative /uL Urine RBC 16 0 - 4 /hpf Urine WBC Clumps Present None Seen /hpf Urine Microscopic WBC 305 H 0-5 /HPF Urine Squamous Epithelial Cells Few <5 /hpf Urine Bacteria Mod H None Seen /hpf Urine Mucus Few None Seen Urine Glucose Normal Normal mg/dL Microbiology Date/Time Source Procedure Growth Status 05/01/24 12:55 Blood Blood Culture - Preliminary NO GROWTH AFTER 24 HOURS OF INCUBATION. Resulted Assessment Preprocedural cardiovascular examination Acute cholecystitis Hypertension Hypokalemia COPD Obesity Plan/Recommendation (Dr. Kennedy) Preliminary echocardiogram reveals EF 55-60% without evidence of significant mitral valve/aortic valve stenosis. Revised cardiac risk index (Gaurav criteria): Class I at 3.9% 30-day risk of , OR or cardiac arrest. Patient has no underlying history of congestive heart failure, coronary artery disease, and has an optimal functional capacity. Per Cardiology standpoint, the patient is at an acceptable-risk for moderate-risk surgery. There is no additional cardiac workup indicated prior to surgery. Thank you for allowing us to care for this patient. Please call with any questions or concerns. This medical document was created using an electronic medical record system with voice recognition software and computerized dictation system. Although this document has been carefully reviewed, there might still be some phonetic and typographical errors. Occasional wrong-word or ``sound-alike substitutions may have occurred due to the inherent limitations of voice recognition software. These areas are purely typographical due to imperfections of the software programs and do not reflect any compromise in the patient's medical care. Please read the chart carefully and recognize, using context, where these substitutions have occurred. Plan discussed with: Patient, Other (Niece) NYHA Physical activity limitations: NA Date of Service: May 02, 2024 Billing Provider: JOEL MALCOLM Cardiology Common Codes: [id number] INP/OBS CARE (High) JOEL MALCOLM May 02, 2024 14:14
--- NOTE | 2024-05-02 14:26 | DVHINCON2 ---
GI Consult Consult Note GI consult note Date of Consultation: 05/02/2024 Chief Complaint: Acute cholecystitis, pancreatic mass Referring Physician: Dr. Mejias H&P: 83-year-old female presented to ER with right upper quadrant pain, for the last four days Patient diagnosed with gallstones two years ago, and was scheduled for a cholec ystectomy which was not completed due to elevated blood pressure Patient also complains of nausea and vomiting. No hematemesis Past Medical History: Gallstones Past Surgical History: Appendectomy Social History: NO smoking, drinking ETOH and use of illegal drugs. Family History: Noncontributory Review of Systems: Constitutional: no fever, chill, weight loss HEENT: no eye pain, no hearing loss, no oral lesion, no scleral icterus Heart: no chest pain, no chest pressure Lung: no cough, no dyspnea with exertion Abdomen: see HPI Physical exam: General: NAD, AAOX3 Chest: lung liu clear to auscultation Heart: RRR, no murmur Abdomen: + right upper quadrant tenderness to palpation, +BS Labs: Labs Test 05/02/24 05:52 05/01/24 13:57 05/01/24 11:50 Range/Units White Blood Count 11.0 H 4.4-10.8 10^3/uL Red Blood Count 4.09 4.0-5.20 10^6/uL Hemoglobin 12.8 12.2-16.2 g/dL Hematocrit 38.0 36.0-46.0 % Mean Corpuscular Volume 92.9 80.0-100.0 fL Mean Corpuscular Hemoglobin 31.2 28.0-32.0 pg Mean Corpuscular Hemoglobin Concent 33.6 32.0-36.0 g/dL Red Cell Distribution Width 13.0 11.8-14.3 % Platelet Count 169 140-450 10^3/uL Mean Platelet Volume 8.1 6.9-10.8 fL Neutrophils (%) (Auto) 76.0 37.0-80.0 % Lymphocytes (%) (Auto) 14.0 10.0-50.0 % Monocytes (%) (Auto) 7.6 0.0-12.0 % Eosinophils (%) (Auto) 1.9 0.0-7.0 % Basophils (%) (Auto) 0.5 0.0-2.0 % Neutrophils # (Auto) 8.4 1.6-8.6 10 ^3/uL Lymphocytes # (Auto) 1.5 0.4-5.4 10 ^3/uL Monocytes # (Auto) 0.8 0-1.3 10 ^3/uL Eosinophils # (Auto) 0.2 0-0.8 10 ^3/uL Basophils # (Auto) 0.1 0-0.2 10 ^3/uL Nucleated Red Blood Cells 0.0 % Prothrombin Time 11.4 9.3-11.8 sec Prothrombin Time INR 1.08 0.9-1.15 Activated Partial Thromboplast Time 29.0 24.5-34.5 SEC Sodium Level 140 136-145 mmol/L Potassium Level 3.1 L 3.5-5.1 mmol/L Chloride Level 103 98-107 mmol/L Carbon Dioxide Level 28 20-31 mmol/L Anion Gap 9 5-15 Blood Urea Nitrogen 10 9-23 mg/dL Creatinine 0.79 0.550-1.02 mg/dL Glomerular Filtration Rate Calc 75 >90 mL/min BUN/Creatinine Ratio 12.7 10.0-20.0 Serum Glucose 98 74-106 mg/dL Hemoglobin A1c 5.8 H <5.7 % A1C Lactic Acid Level 0.9 0.4-2.0 mmol/L Calcium Level 8.8 8.7-10.4 mg/dL Phosphorus Level 2.7 2.4-5.1 mg/dL Magnesium Level 1.9 1.6-2.6 mg/dL Total Bilirubin 1.8 H 0.2-1.0 mg/dL Aspartate Amino Transferase (AST) 169 H 13-40 U/L Alanine Aminotransferase (ALT) 172 H 7-40 U/L Alkaline Phosphatase 119 H 46-116 U/L Total Protein 6.2 5.7-8.2 g/dL Albumin 3.8 3.2-4.8 g/dL Triglycerides Level 60 < 150 mg/dL Cholesterol Level 147 < 200 mg/dL LDL Cholesterol 72 < 100 mg/dL HDL Cholesterol 54 40-59 mg/dL Lipase 26 12-53 U/L Vitamin B12 Level 456 211-911 pg/mL Vitamin D 25-Hydroxy 17.9 L 30.0-100 ng/mL Thyroid Stimulating Hormone (TSH) 0.55 0.55-4.78 uIU/mL Troponin I High Sensitivity 5 </=34 ng/L Urine Color Yellow Yellow Urine Clarity Cloudy H Clear Urine pH 7.0 5.0-9.0 Urine Specific [place] 1.022 1.001-1.035 Urine Protein Trace H Negative Urine Ketones Negative Negative Urine Blood 1+ H Negative /uL Urine Nitrite 2+ H Negative Urine Bilirubin Negative Negative Urine Urobilinogen Normal Negative mg/dL Urine Leukocyte Esterase 3+ Negative /uL Urine RBC 16 0 - 4 /hpf Urine WBC Clumps Present None Seen /hpf Urine Microscopic WBC 305 H 0-5 /HPF Urine Squamous Epithelial Cells Few <5 /hpf Urine Bacteria Mod H None Seen /hpf Urine Mucus Few None Seen Urine Glucose Normal Normal mg/dL Microbiology Date/Time Source Procedure Growth Status 05/01/24 12:55 Blood Blood Culture - Preliminary NO GROWTH AFTER 24 HOURS OF INCUBATION. Resulted Imaging: Abdominal ultrasound IMPRESSION: No sonographic evidence of gallstones or acute cholecystitis. CT abdomen pelvis IMPRESSION: 1. Distended gallbladder with surrounding fat stranding May suggest acute cholecystitis. Clinical correlation is recommended. Further evaluation with targeted ultrasound may be beneficial. 2. Fecal retention in the colon consistent with constipation. 3. Colonic diverticulosis without acute diverticulitis. MRCP IMPRESSION: 1. Cholelithiasis with multiple small calculi within the distal cystic duct, pericholecystic fluid. Findings are consistent with acute cholecystitis. 2. 1.4 cm cystic lesion in the ventral distal pancreatic body favors intraductal papillary mucinous neoplasm. Assessment: Acute cholecystitis Abdominal pain Cystic lesion of pancreatic body Plan: Discussed with Dr. Meadows Patient possible plan for cholecystectomy seen by Dr. Zendejas, awaiting cardiac clearance CA 19-9 Recommend referral to higher level of care for EUS on an outpatient basis for the pancreatic lesion Thank you for this consult Date of Service: May 02, 2024 Billing Provider: JACKSON TREVINO Common Visit Codes: CONSULT ONLY Consultation Codes: [id number] CONSULT <45MIN JACKSON TREVINO May 02, 2024 14:26
[2024-05-02] MEDS: LOSARTAN POTASSIUM 50 MG TAB PO SCH (15:54)
[2024-05-03] VITALS (8 sets, daily range): BP systolic 135–162; BP diastolic 70–78; PULSE 75–86; RESP 16–18; TEMP 97.7–98.4; O2SAT 92–95
[2024-05-03 06:45] LABS: Basophils # (auto) 0 10 ^3/uL (0-0.2); Basophils % (auto) 0.2 % (0.0-2.0); Eosinophils # (auto) 0.2 10 ^3/uL (0-0.8); Eosinophils % (auto) 2.4 % (0.0-7.0); Hematocrit 37.1 % (36.0-46.0); Hemoglobin 12.5 g/dL (12.2-16.2); Lymphocytes # (auto) 1.4 10 ^3/uL (0.4-5.4); Lymphocytes % (auto) 14.7 % (10.0-50.0); Mean Corpuscular Hemoglobin 31.3 pg (28.0-32.0); Mean Corpuscular Hgb Conc. 33.7 g/dL (32.0-36.0); Monocytes # (auto) 0.8 10 ^3/uL (0-1.3); Monocytes % (auto) 8.7 % (0.0-12.0); Nucleated Red Blood Cells % 0.1 %; Platelet Count (auto) 169 10^3/uL (140-450); Red Blood Cells 3.99 10^6/uL (4.0-5.20); Red Cell Distribution Width 13.2 % (11.8-14.3); White Blood Cell 9.5 10^3/uL (4.4-10.8)
[2024-05-03 07:02] LABS: Albumin 3.7 g/dL (3.2-4.8); Alkaline Phosphatase 103 U/L (46-116); Anion Gap 11 (5-15); BUN/Creatinine Ratio 11.7 (10.0-20.0); Bilirubin, Total 1.2 mg/dL (0.2-1.0); Carbon Dioxide 26 mmol/L (20-31); Chloride 101 mmol/L (98-107); Glucose 88 mg/dL (74-106); Sodium 138 mmol/L (136-145); Total Protein 6.1 g/dL (5.7-8.2)
[2024-05-03 07:03] LABS: Alanine Aminotransferase 105 U/L (7-40); Aspartate Aminotransferase 68 U/L (13-40); Blood Urea Nitrogen 9 mg/dL (9-23); Calcium 8.5 mg/dL (8.7-10.4); Potassium 3.2 mmol/L (3.5-5.1)
--- NOTE | 2024-05-03 12:50 | DVHPN2 ---
Progress Note Date Seen: May 03, 2024 Has the PT tested + for MRSA If YES, has PT been informed?: No Medical Necessity Reason Pt with a Central, PICC or Fol: No Objective vital signs Vital Sign Date Time Temp Pulse Resp B/P (MAP) Pulse Ox O2 Delivery O2 Flow Rate FiO2 05/03/24 10:07 151/75 05/03/24 09:30 98.0 76 16 95 98.0 05/02/24 20:00 Room Air* 0 21 Total Intake and Output 05/02/24 05/02/24 05/03/24 14:59 22:59 06:59 Intake Total 100 ml 120 ml 352 ml Output Total 350 ml 500 ml Balance 100 ml -230 ml -148 ml medications Current Medications Medications Dose Ordered Sig/Matt Route Start Time Stop Time Status Last Admin Dose Admin Acetaminophen/ Hydrocodone Bitart 1 tab Q4HPRN PRN PO 05/01/24 16:45 Piperacillin Sod/ Tazobactam Sod 100 ml @ 25 mls/hr Q8H IV 05/01/24 22:00 05/03/24 06:28 25 MLS/HR Sodium Chloride 1,000 ml @ 75 mls/hr [id number] IV 05/01/24 16:45 05/03/24 06:26 75 MLS/HR Hydralazine HCl 10 mg Q6HP PRN IV 05/01/24 22:30 Ergocalciferol 50,000 unit Q7D PO 05/02/24 07:00 05/02/24 10:02 50,000 UNIT Losartan Potassium 50 mg DAILY PO 05/02/24 14:15 05/03/24 10:07 50 MG laboratory and microbiology Laboratory Tests 05/03/24 05:29 Test 05/03/24 05:29 Range/Units Serum Glucose 88 74-106 mg/dL Problem List/Assessment/Plan Problem List/Assessment/Plan 05/03/24 LENGTHY CONVERSATION WITH PATIENT, AFTER THOROUGH EXPLANATION SHE WISHES TO RESCIND THE DNR ORDERS TILL AFTER OPERATION, PATIENT'S [employer]PORATE COORDINATOR( NIECE) WAS AT BEDSIDE THROUGHOUT THIS CONVERSATION, OPERATION RISKS AND COMPLICATIONS EXPLAINED ONCE AGAIN Plan discussed with: Patient ISHAAN MITCHELL MD May 03, 2024 12:50
[2024-05-03] MEDS: D5W/SOD CHL 0.45%/KCL 20MEQ 1,000 ML IV SCH (13:00)
--- NOTE | 2024-05-03 14:43 | DVHPNRES ---
Progress Note Date Seen: May 03, 2024 Resident Creating Document: SAMRA ARMAS RESIDENT Has the PT tested + for MRSA If YES, has PT been informed?: No Medical Necessity Reason Pt with a Central, PICC or Fol: No Subjective Review of Systems An 83-year-old female with PMHx of gallstones, overactive bladder, COPD, osteoporosis and appendectomy presents with 4 days of RUQ abdominal pain associated with nausea, vomiting, and diarrhea. Pain reportedly worsens when upright. She denies fevers, chills, chest pain, SOB, or dizziness. Patient is with a [employer] for intermittent catheterization. She has not been taking any medications at home aside from eyedrops. No recent antibiotic use. Symptoms have been improving since admission. She was evaluated with labs and imaging. WBC on admission was elevated at 15.6 trending down to 11.9. Total bilirubin was elevated at 2.6 with ALP 138. AST/ALT mildly elevated. CT A/P with IV contrast showed distended gallbladder with surrounding fat stranding concerning for acute cholecystitis. No ductal dilation. Gallbladder ultrasound was non-diagnostic. MRCP: 1. Cholelithiasis with multiple small calculi within the distal cystic duct, pericholecystic fluid. Findings are consistent with acute cholecystitis and 1.4 cm cystic lesion in the ventral distal pancreatic body favors intraductal papillary mucinous neoplasm. Surgery will do cholecystectomy probably tomorrow , cardiology cleared the patient, ECHO didnt showed any abnormalities, and will need f/u due to possible pancreatic intraductal papillary mucinous neoplasm. Objective vital signs Vital Sign Date Time Temp Pulse Resp B/P (MAP) Pulse Ox O2 Delivery O2 Flow Rate FiO2 05/03/24 13:29 97.7 75 16 160/70 (100) 95 97.7 05/02/24 20:00 Room Air* 0 21 Total Intake and Output 05/02/24 05/02/24 05/03/24 15:00 23:00 07:00 Intake Total 100 ml 120 ml 352 ml Output Total 350 ml 500 ml Balance 100 ml -230 ml -148 ml medications Current Medications Medications Dose Ordered Sig/Matt Route Start Time Stop Time Status Last Admin Dose Admin Acetaminophen/ Hydrocodone Bitart 1 tab Q4HPRN PRN PO 05/01/24 16:45 Piperacillin Sod/ Tazobactam Sod 100 ml @ 25 mls/hr Q8H IV 05/01/24 22:00 05/03/24 06:28 25 MLS/HR Hydralazine HCl 10 mg Q6HP PRN IV 05/01/24 22:30 Ergocalciferol 50,000 unit Q7D PO 05/02/24 07:00 05/02/24 10:02 50,000 UNIT Losartan Potassium 50 mg DAILY PO 05/02/24 14:15 05/03/24 10:07 50 MG Potassium Chloride/Dextrose/ Sod Cl 1,000 ml @ 75 mls/hr [id number] IV 05/03/24 13:00 Examination eneral Appearance: Alert, Oriented X3, Cooperative HEENT: Atraumatic, PERRLA Respiratory: Clear to auscultation, Normal air movement Cardiovascular: Regular rate Abdominal: Normal bowel sounds, Other (Matos's positive ) Extremities: No clubbing, No cyanosis Skin: No rashes Neuro: Normal gait laboratory and microbiology Laboratory Tests 05/03/24 05:29 Test 05/03/24 05:29 Range/Units Serum Glucose 88 74-106 mg/dL Microbiology Date/Time Source Procedure Growth Status 05/01/24 12:55 Blood Blood Culture - Preliminary NO GROWTH AFTER 48 HOURS OF INCUBATION. 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 #Complicated UTI #Chronic user fry catheter #Hypertensive crisis #Hypokalemia #Constipation #Vitamin D deficiency #Transaminitis #Hyperbilirubinemia NPO after midnight Cardiology cleared for cholecystectomy per Dr. Zendejas ECHO report: Preliminary echocardiogram reveals EF 55-60% without evidence of significant mitral valve/aortic valve stenosis Zosyn IV Potassium IV [place] and morphine as needed for pain Losartan 50 mg BID Hydralazine PRN BP> 170 Goals of care discussed with the patient; full code (patient is not DNR) Case discussed with Dr. Steele Plan discussed with: Patient, Other (rn) My Orders My Orders Orders - SAMRA ARMAS Procedure Category Date Status Time Potassium Chloride PHA 05/03/24 In Process (Potassium Chloride). 11:15 Code Status CODE 3/26/25 Transmitted 14:05 Dietary Evaluation Review Comments: 1. Continue Full Liquid diet per surgery discretion 2. Encourage good oral intakes of >50% of meals to meet est. needs 3. Appreciate daily weights to trend 4. Will assess need for snacks/oral supplements on FU pending PO Expected Outcomes/Goals: Adequate PO intakes, weight maintenance. Addendum Addendum Addendum I was physically present for the stein portions of the service provided to patient by THE RESIDENT. I have reviewed the documentation, discussed the case with resident and agree with the resident's documentation except as noted. Also the patient's clinical case was discussed with the patient's nurse. This medical document was created using an electronic medical record system with computerized dictation system. Although this document has been carefully reviewed, there might still be some phonetic and typographical errors. These areas are purely typographical due to imperfections of the software programs, and do not reflect any compromise in the patient's medical care. Late signature. Date of Service: May 03, 2024 Billing Provider: JOLENE STEELE MD Common Visit Codes: 13959-[id number] INP/OBS CARE(HIGH) SAMRA ARMAS RESIDENT May 03, 2024 14:43 JOLENE STEELE MD May 04, 2024 06:37
[2024-05-03] MEDS: PIPERACILLIN-TAZOB 3.375GM 100 ML IV ONE (15:38)
[2024-05-03] MEDS: POTASSIUM CHLORIDE 40 MEQ, LIDOCAINE 1% (LOCAL ANESTH.) 4 ML in SODIUM CHL 0.9% 250 ML IV ONE (15:39)
--- NOTE | 2024-05-03 17:03 | DVHSR ---
APPROVED REPORT EXAM: Two-dimensional and M-mode echocardiogram with Doppler and color Doppler. Blood Pressure: 128/79 mmHg INDICATION Pre-Op RISK FACTORS Height: 5'0, Weight: 158 DIMENSIONS LVDd3.7 (3.8-5.7cm)LA (2D)3.1 (1.9-4.0cm)Aortic Root3.2 (2.0-3.7cm) LVDs2.5 (2.5-4.0cm)LA (MM) (1.9-4.0cm)Aortic Cusp Exc1.6 (1.5-2.0cm) EF (%) 60.0 (55-70%)Rt. Atrium3.5 (1.9-4.0cm)Asc. Aorta cm IVSd1.1 (0.7-1.1cm)RV (D)4.1 (1.8-2.4cm) PWd1.0 (0.7-1.1cm) Mitral Valve MitralMitral Stenosis E wave0.84m/sMV Mean GR.mmHg A wave1.17m/sMV Peak GR.101mmHg E/A ratio0.72D MVAcm2 DECEL [id number] 1/2 Timems Aortic Valve Aortic ValveAortic Stenosis V11.09m/Brenda Mean GR.4mmHg V21.40m/Brenda Peak GR.8mmHg LVOT Diameter2.0 (1.8-2.4cm)Doppler AVA2.44cm2 Pulmonic Valve V20.92m/s Tricuspid Valve TR Velocity3.31m/s [id number] Conclusion Technically good study. Sinus rhythm. Concentric LVH. Left atrial enlargement. Valves are normal. EF of 60% with normal RV function. Moderate TR No pericardial effusion masses or vegetations.
--- NOTE | 2024-05-03 18:23 | DVHPN2 ---
Progress Note - Dictate Date Seen: May 03, 2024 Has the PT tested + for MRSA If YES, has PT been informed?: No Medical Necessity Reason Pt with a Central, PICC or Fol: No Subjective No new complaints Patient resting comfortably Liver enzymes trending down vital signs Vital Sign Date Time Temp Pulse Resp B/P (MAP) Pulse Ox O2 Delivery O2 Flow Rate FiO2 05/03/24 16:30 98.2 78 16 157/77 (103) 93 98.2 05/02/24 20:00 Room Air* 0 21 Total Intake and Output 05/02/24 05/02/24 05/03/24 15:00 23:00 07:00 Intake Total 100 ml 120 ml 352 ml Output Total 350 ml 500 ml Balance 100 ml -230 ml -148 ml medications Current Medications Medications Dose Ordered Sig/Matt Route Start Time Stop Time Status Last Admin Dose Admin Acetaminophen/ Hydrocodone Bitart 1 tab Q4HPRN PRN PO 05/01/24 16:45 Piperacillin Sod/ Tazobactam Sod 100 ml @ 25 mls/hr Q8H IV 05/01/24 22:00 05/03/24 15:40 25 MLS/HR Hydralazine HCl 10 mg Q6HP PRN IV 05/01/24 22:30 Ergocalciferol 50,000 unit Q7D PO 05/02/24 07:00 05/02/24 10:02 50,000 UNIT Potassium Chloride/Dextrose/ Sod Cl 1,000 ml @ 75 mls/hr [id number] IV 05/03/24 13:00 Losartan Potassium 50 mg BID PO 05/03/24 22:00 objective General: NAD, AAOX3 Chest: lung liu clear to auscultation Heart: RRR, no murmur Abdomen: + right upper quadrant tenderness to palpation, +BS laboratory and microbiology Laboratory Tests 05/03/24 05:29 Test 05/03/24 05:29 Range/Units Serum Glucose 88 74-106 mg/dL Problems(with codes): (1) Cholelithiasis and cholecystitis without obstruction (2) Acute abdominal pain Prognosis Plan Patient is tentatively scheduled for a laparoscopic cholecystectomy in a.m. Continue to monitor labs Continue IV antibiotics and IV fluid hydration I will follow up patient with the Dietary Evaluation Review Comments: 1. Continue Full Liquid diet per surgery discretion 2. Encourage good oral intakes of >50% of meals to meet est. needs 3. Appreciate daily weights to trend 4. Will assess need for snacks/oral supplements on FU pending PO Expected Outcomes/Goals: Adequate PO intakes, weight maintenance. Plan discussed with: Patient NILDA GRAY MD May 03, 2024 18:23
[2024-05-03] MEDS: LOSARTAN POTASSIUM 50 MG TAB PO SCH (22:45)
[2024-05-03] MEDS: amLODIPine BESYLATE 5 MG TAB PO SCH (22:51)
[2024-05-04] VITALS (10 sets, daily range): BP systolic 128–144; BP diastolic 70–77; PULSE 69–80; RESP 8–19; TEMP 97.4–98.2; O2SAT 95–100
[2024-05-04 06:01] LABS: Basophils # (auto) 0.1 10 ^3/uL (0-0.2); Basophils % (auto) 0.5 % (0.0-2.0); Eosinophils # (auto) 0.3 10 ^3/uL (0-0.8); Eosinophils % (auto) 2.4 % (0.0-7.0); Hematocrit 44.5 % (36.0-46.0); Hemoglobin 15.1 g/dL (12.2-16.2); Lymphocytes # (auto) 2.5 10 ^3/uL (0.4-5.4); Lymphocytes % (auto) 22.6 % (10.0-50.0); Mean Corpuscular Hemoglobin 31.3 pg (28.0-32.0); Mean Corpuscular Hgb Conc. 33.9 g/dL (32.0-36.0); Mean Corpuscular Volume 92.2 fL (80.0-100.0); Monocytes # (auto) 0.9 10 ^3/uL (0-1.3); Neutrophils # (auto) 7.3 10 ^3/uL (1.6-8.6); Neutrophils % (auto) 66.5 % (37.0-80.0); Nucleated Red Blood Cells % 0.1 %; Platelet Count (auto) 224 10^3/uL (140-450); Red Blood Cells 4.83 10^6/uL (4.0-5.20); Red Cell Distribution Width 12.9 % (11.8-14.3); White Blood Cell 10.9 10^3/uL (4.4-10.8)
[2024-05-04 06:16] LABS: Alkaline Phosphatase 109 U/L (46-116); Anion Gap 9 (5-15); BUN/Creatinine Ratio 6.6 (10.0-20.0); Calcium 9.3 mg/dL (8.7-10.4); Carbon Dioxide 25 mmol/L (20-31); Chloride 102 mmol/L (98-107); Potassium 3.5 mmol/L (3.5-5.1); Sodium 136 mmol/L (136-145); Total Protein 7.4 g/dL (5.7-8.2)
[2024-05-04 06:17] LABS: Albumin 4.4 g/dL (3.2-4.8); Bilirubin, Total 0.9 mg/dL (0.2-1.0)
[2024-05-04 06:18] LABS: Alanine Aminotransferase 84 U/L (7-40); Aspartate Aminotransferase 43 U/L (13-40); Blood Urea Nitrogen 5 mg/dL (9-23); Glucose 118 mg/dL (74-106)
[2024-05-04] MEDS: LIDOCAINE 2% JELLY 11ml (GLYDO) ONE (06:43)
--- NOTE | 2024-05-04 07:17 | DVH ---
EXAM: XR Chest, 1 View CLINICAL INDICATION: Per protocol prior to Surgery TECHNIQUE: Frontal view of the chest. COMPARISON: None FINDINGS: LUNGS AND PLEURAL SPACES: See below. HEART: Cardiomegaly with mild congestion. MEDIASTINUM: Unremarkable. Normal mediastinal contour. BONES/JOINTS: Unremarkable. No acute fracture. OTHER FINDINGS: . IMPRESSION: Cardiomegaly with mild congestion.
[2024-05-04] MEDS ORDERED: MIDAZOLAM HCL 2MG/2ML 2ml VIAL (1mg/ml) ONE (07:29)
[2024-05-04] MEDS ORDERED: PROPOFOL 10 MG/ML 20 ML IV ONE (07:29)
[2024-05-04] MEDS ORDERED: ETOMIDATE (2MG/ML) 20ML VIAL IV ONE (07:29)
[2024-05-04] MEDS ORDERED: DexAMETHasone SOD PHOS 10MG/1ML VIAL INJ ONE (07:29)
[2024-05-04] MEDS ORDERED: fentaNYL CITRATE 100 MCG/2 ML VL ONE (07:29)
[2024-05-04] MEDS ORDERED: SUGAMMADEX 200mg/2ml Vial (100MG/ML) IV ONE (08:19)
[2024-05-04] MEDS ORDERED: ONDANSETRON HCL 4 MG/2 ML VIAL ONE (08:19)
[2024-05-04] MEDS: D5W/SOD CHL 0.45%/KCL 20MEQ 1,000 ML IV SCH (08:30)
--- NOTE | 2024-05-04 08:39 | DVHOP ---
DATE OF SURGERY: 05/04/2024 PREOPERATIVE DIAGNOSES: * Cholelithiasis. * Cholecystitis. POSTOPERATIVE DIAGNOSES: * Cholelithiasis. * Cholecystitis. SURGEON: Abel Zendejas MD ASSISTANTS: 1. Yfn Garcia NP 2. Alberto Devine MD ANESTHESIA: General endotracheal. Martin Mauro MD PROCEDURES: * Laparoscopy. * Laparoscopic cholecystectomy. DESCRIPTION OF PROCEDURE: Under general endotracheal anesthesia with the patient's skin prepped and draped, a supraumbilical incision was made and Veress needle inserted into the peritoneal cavity by the hanging drop technique to establish pneumoperitoneum to 15 mmHg pressure by insufflation with carbon dioxide. With the abdomen fully distended, the needle was removed and replaced with a 5 mm trocar port through which a 0-degree viewing laparoscope was inserted and under direct vision, a 5 mm port and 10 mm port were inserted through the right anterior axillary line and the subxiphoid skin in the midline respectively. Instrumentation was introduced. Laparoscopy was performed revealing no obvious unexpected pathology on the serosal surfaces visualized. The gallbladder was acutely inflamed. It was placed on tension. The cystic duct and cystic artery were identified and skeletonized, traced into the hepatocystic triangle so as to minimize the potential for inadvertent injury to the common bile duct. The cystic duct was exceedingly short and was difficult to separate from the inflamed surrounding tissues. However, eventually we were able to circumferentially dissect the cystic duct and divide it between metallic clips close to the gallbladder, again protecting the common duct from injury. The cystic artery and cystic duct having been divided, the gallbladder was aspirated of inspissated bile which was submitted for cultures and sensitivities and the gallbladder was resected from its liver bed by electrocautery and traction. The fully mobilized gallbladder was retrieved from the peritoneal cavity by placement in a specimen extraction bag which was removed through the subxiphoid 10 mm port site. Right upper quadrant was then profusely irrigated, irrigant was aspirated. Due to much inflammation, a 10 mm [place] drain was placed underneath the right lobe of the liver and exteriorized through the 5 mm port site on the right flank, secured with a 2-0 nylon suture. Following assurance of complete hemostasis, there not being any bleeding from either the port sites or from the cholecystectomy site, the instrumentation was withdrawn, pneumoperitoneum was evacuated, fascial defect closed using 0 Vicryl, wounds approximated using 2-0 Monocryl sutures, Dermabond glue, and Steri-Strips. The patient remained stable throughout the procedure, left the operating room following an accurate needle and sponge count. Her family was informed by phone. Angelica Weir was reached at [phone]. MD TE Castillo/MILLIE TID: [id number] RECEIPT: [id number]
[2024-05-04] MEDS ORDERED: hydrALAZINE HCL 20 MG/ML VL IV PRN (08:45)
[2024-05-04] MEDS ORDERED: MIDAZOLAM HCL 2MG/2ML 2ml VIAL (1mg/ml) IV PRN (08:45)
[2024-05-04] MEDS ORDERED: MORPHINE SULFATE 4 MG/ML SYR/VIAL IV PRN (08:45)
[2024-05-04] MEDS ORDERED: ePHEDrine SULFATE 50 MG/ML AMP IV PRN (08:45)
[2024-05-04] MEDS: HYDROmorphone HCL 2 MG/ML VL/or syr IV PRN (08:49)
[2024-05-04] MEDS: PANTOPRAZOLE 40 MG/10 ML VIAL INJ IV SCH (10:00)
--- NOTE | 2024-05-04 10:28 | DVHPNRES ---
Progress Note Date Seen: May 04, 2024 Resident Creating Document: SAMRA ARMAS RESIDENT Has the PT tested + for MRSA If YES, has PT been informed?: No Medical Necessity Reason Pt with a Central, PICC or Fol: No Subjective Review of Systems An 83-year-old female with PMHx of gallstones, overactive bladder, COPD, osteoporosis and appendectomy presents with 4 days of RUQ abdominal pain associated with nausea, vomiting, and diarrhea. Pain reportedly worsens when upright. She denies fevers, chills, chest pain, SOB, or dizziness. Patient is with a [employer] for intermittent catheterization. She has not been taking any medications at home aside from eyedrops. No recent antibiotic use. Symptoms have been improving since admission. She was evaluated with labs and imaging. WBC on admission was elevated at 15.6 trending down to 11.9. Total bilirubin was elevated at 2.6 with ALP 138. AST/ALT mildly elevated. CT A/P with IV contrast showed distended gallbladder with surrounding fat stranding concerning for acute cholecystitis. No ductal dilation. Gallbladder ultrasound was non-diagnostic. MRCP: 1. Cholelithiasis with multiple small calculi within the distal cystic duct, pericholecystic fluid. Findings are consistent with acute cholecystitis and 1.4 cm cystic lesion in the ventral distal pancreatic body favors intraductal papillary mucinous neoplasm. Surgery did cholecystectomy today, no complications cardiology cleared the patient, ECHO didn't showed any abnormalities, and will need f/u due to possible pancreatic intraductal papillary mucinous neoplasm. Objective vital signs Vital Sign Date Time Temp Pulse Resp B/P (MAP) Pulse Ox O2 Delivery O2 Flow Rate FiO2 05/04/24 08:35 Mask 8.0 100 05/04/24 08:35 100 05/04/24 05:00 98.2 80 8 140/72 (94) 98.2 Total Intake and Output 05/03/24 05/03/24 05/04/24 15:00 23:00 07:00 Intake Total 100 ml 850 ml 250 ml Output Total 350 ml Balance 100 ml 500 ml 250 ml medications Current Medications Medications Dose Ordered Sig/Matt Route Start Time Stop Time Status Last Admin Dose Admin Acetaminophen/ Hydrocodone Bitart 1 tab Q4HPRN PRN PO 05/01/24 16:45 Piperacillin Sod/ Tazobactam Sod 100 ml @ 25 mls/hr Q8H IV 05/01/24 22:00 05/04/24 06:15 25 MLS/HR Hydralazine HCl 10 mg Q6HP PRN IV 05/01/24 22:30 Ergocalciferol 50,000 unit Q7D PO 05/02/24 07:00 05/02/24 10:02 50,000 UNIT Potassium Chloride/Dextrose/ Sod Cl 1,000 ml @ 75 mls/hr [id number] IV 05/03/24 13:00 05/03/24 13:00 75 MLS/HR Losartan Potassium 50 mg BID PO 05/03/24 22:00 05/03/24 22:45 50 MG Amlodipine Besylate 5 mg DAILY PO 05/03/24 22:45 05/03/24 22:51 5 MG Potassium Chloride/Dextrose/ Sod Cl 1,000 ml @ 100 mls/hr Q10H IV 05/04/24 08:30 Pantoprazole Sodium 40 mg DAILY IV 05/04/24 10:00 Ondansetron HCl 4 mg Q4HPRN PRN IV 05/04/24 08:30 Hydromorphone HCl 0.5 mg Q3HPRN PRN IV 05/04/24 08:30 Examination General Appearance: Alert, Oriented X3, Cooperative HEENT: Atraumatic, PERRLA Respiratory: Clear to auscultation, Normal air movement Cardiovascular: Regular rate Abdominal: surgical wounds covered, no bleeding, no peritoneal signs, FLAKITO with small serosanguineous drainage Extremities: No clubbing, No cyanosis Skin: No rashes Neuro: Normal gait laboratory and microbiology Laboratory Tests 05/04/24 05:29 Test 05/04/24 05:29 Range/Units Serum Glucose 118 H 74-106 mg/dL Microbiology Date/Time Source Procedure Growth Status 05/01/24 12:55 Blood Blood Culture - Preliminary NO GROWTH AFTER 48 HOURS OF INCUBATION. 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 #Complicated UTI #Chronic user fry catheter #Hypertensive crisis #Hypokalemia #Constipation #Vitamin D deficiency #Transaminitis #Hyperbilirubinemia Clear liquid diet IV fluids per surgery Cardiology cleared for cholecystectomy per Dr Zendejas ECHO report: Preliminary echocardiogram reveals EF 55-60% without evidence of significant mitral valve/aortic valve stenosis Zosyn IV Potassium IV [place] and morphine for pain Losartan 50 mg BID Amlodipine Hydralazine PRN BP> [address] Steele Plan discussed with: Patient, Other (RN) My Orders My Orders Orders - SAMRA ARMAS RESIDENT Procedure Category Date Status Time Code Status CODE 05/03/24 Transmitted 14:05 Losartan Tablet PHA 05/03/24 In Process (Cozaar Tablet) 22:00 Npo After Midnight ORDERS 05/03/24 Transmitted Amlodipine Tablet PHA 05/03/24 In Process (Norvasc Tablet) 22:45 Chest Portable XY 05/04/24 Resulted 04:00 Dietary Evaluation Review Comments: 1. Continue Full Liquid diet per surgery discretion 2. Encourage good oral intakes of >50% of meals to meet est. needs 3. Appreciate daily weights to trend 4. Will assess need for snacks/oral supplements on FU pending PO Expected Outcomes/Goals: Adequate PO intakes, weight maintenance. Addendum Addendum Addendum I was physically present for the stein portions of the service provided to patient by THE RESIDENT. I have reviewed the documentation, discussed the case with resident and agree with the resident's documentation except as noted. Also the patient's clinical case was discussed with the patient's nurse. This medical document was created using an electronic medical record system with computerized dictation system. Although this document has been carefully reviewed, there might still be some phonetic and typographical errors. These areas are purely typographical due to imperfections of the software programs, and do not reflect any compromise in the patient's medical care. Late signature. Date of Service: May 04, 2024 Billing Provider: JOLENE STEELE MD Common Visit Codes: 40994-[id number] INP/OBS CARE(HIGH) SAMRA ARMAS RESIDENT May 04, 2024 10:28 JOLENE STEELE MD May 05, 2024 05:03
[2024-05-04] MEDS: HYDROMORPHONE HCL 1 MG/ML INJ IV PRN (14:10)
[2024-05-04] MEDS: PANTOPRAZOLE 40 MG/10 ML VIAL INJ IV ONE (20:00)
--- NOTE | 2024-05-04 22:28 | DVHPN2 ---
Progress Note - Dictate Date Seen: May 04, 2024 Has the PT tested + for MRSA If YES, has PT been informed?: No Medical Necessity Reason Pt with a Central, PICC or Fol: No Subjective No new complaints Patient is S/P laparoscopic cholecystectomy Patient resting comfortably Liver enzymes trending down vital signs Vital Sign Date Time Temp Pulse Resp B/P (MAP) Pulse Ox O2 Delivery O2 Flow Rate FiO2 05/04/24 21:00 97.9 79 19 128/70 (89) 95 97.9 05/04/24 08:35 Mask 8.0 100 Total Intake and Output 05/03/24 05/03/24 05/04/24 15:00 23:00 07:00 Intake Total 100 ml 850 ml 250 ml Output Total 350 ml Balance 100 ml 500 ml 250 ml medications Current Medications Medications Dose Ordered Sig/Matt Route Start Time Stop Time Status Last Admin Dose Admin Acetaminophen/ Hydrocodone Bitart 1 tab Q4HPRN PRN PO 05/01/24 16:45 Piperacillin Sod/ Tazobactam Sod 100 ml @ 25 mls/hr Q8H IV 05/01/24 22:00 05/04/24 14:00 25 MLS/HR Hydralazine HCl 10 mg Q6HP PRN IV 05/01/24 22:30 Ergocalciferol 50,000 unit Q7D PO 05/02/24 07:00 05/02/24 10:02 50,000 UNIT Losartan Potassium 50 mg BID PO 05/03/24 22:00 05/03/24 22:45 50 MG Amlodipine Besylate 5 mg DAILY PO 05/03/24 22:45 05/03/24 22:51 5 MG Potassium Chloride/Dextrose/ Sod Cl 1,000 ml @ 100 mls/hr Q10H IV 05/04/24 08:30 Ondansetron HCl 4 mg Q4HPRN PRN IV 05/04/24 08:30 Hydromorphone HCl 0.5 mg Q3HPRN PRN IV 05/04/24 08:30 05/04/24 14:10 0.5 MG Pantoprazole Sodium 40 mg DAILY IV 05/05/24 10:00 objective General: NAD, AAOX3 Chest: lung liu clear to auscultation Heart: RRR, no murmur Abdomen: + right upper quadrant tenderness to palpation, +BS laboratory and microbiology Laboratory Tests 3/27/25 05:29 Test 05/04/24 05:29 Range/Units Serum Glucose 118 H 74-106 mg/dL Problems(with codes): (1) Acute abdominal pain (2) Cholelithiasis and cholecystitis without obstruction (3) Sepsis, unspecified organism (4) Hypertensive urgency Prognosis Plan IV antibiotics Advance diet as tolerated Monitor labs Supportive care Dietary Evaluation Review Comments: 1. Continue Full Liquid diet per surgery discretion 2. Encourage good oral intakes of >50% of meals to meet est. needs 3. Appreciate daily weights to trend 4. Will assess need for snacks/oral supplements on FU pending PO Expected Outcomes/Goals: Adequate PO intakes, weight maintenance. Plan discussed with: Patient NILDA GRAY MD May 04, 2024 22:28
[2024-05-04] MEDS: ONDANSETRON HCL 4 MG/2 ML VIAL IV PRN (23:27)
[2024-05-05] VITALS (9 sets, daily range): BP systolic 117–142; BP diastolic 50–71; PULSE 61–76; RESP 18–20; TEMP 97.3–98.1; O2SAT 96–100
[2024-05-05 05:54] LABS: Basophils # (auto) 0 10 ^3/uL (0-0.2); Basophils % (auto) 0.1 % (0.0-2.0); Eosinophils # (auto) 0 10 ^3/uL (0-0.8); Hematocrit 37.4 % (36.0-46.0); Hemoglobin 12.8 g/dL (12.2-16.2); Lymphocytes # (auto) 0.9 10 ^3/uL (0.4-5.4); Lymphocytes % (auto) 6.9 % (10.0-50.0); Mean Corpuscular Hemoglobin 31.2 pg (28.0-32.0); Mean Corpuscular Hgb Conc. 34.1 g/dL (32.0-36.0); Mean Corpuscular Volume 91.5 fL (80.0-100.0); Monocytes # (auto) 0.6 10 ^3/uL (0-1.3); Monocytes % (auto) 4.6 % (0.0-12.0); Neutrophils # (auto) 11.3 10 ^3/uL (1.6-8.6); Neutrophils % (auto) 88.4 % (37.0-80.0); Platelet Count (auto) 206 10^3/uL (140-450); Red Blood Cells 4.09 10^6/uL (4.0-5.20); Red Cell Distribution Width 12.5 % (11.8-14.3); White Blood Cell 12.8 10^3/uL (4.4-10.8)
[2024-05-05 06:06] LABS: Albumin 3.7 g/dL (3.2-4.8); Alkaline Phosphatase 81 U/L (46-116); Anion Gap 7 (5-15); Aspartate Aminotransferase 26 U/L (13-40); BUN/Creatinine Ratio 6.7 (10.0-20.0); Carbon Dioxide 27 mmol/L (20-31); Chloride 103 mmol/L (98-107); Potassium 3.6 mmol/L (3.5-5.1); Sodium 137 mmol/L (136-145); Total Protein 6.1 g/dL (5.7-8.2)
[2024-05-05 06:07] LABS: Bilirubin, Total 0.6 mg/dL (0.2-1.0)
[2024-05-05 06:23] LABS: Alanine Aminotransferase 54 U/L (7-40); Blood Urea Nitrogen 5 mg/dL (9-23); Glucose 124 mg/dL (74-106)
[2024-05-05] MEDS: ONDANSETRON HCL 4 MG/2 ML VIAL IV ONE (08:55)
[2024-05-05] MEDS: HYDROcodone-ACET 5/325MG TAB PO PRN (08:56)
[2024-05-05] MEDS: PANTOPRAZOLE 40 MG/10 ML VIAL INJ IV SCH (10:21)
--- NOTE | 2024-05-05 11:04 | DVHPN2 ---
Progress Note Date Seen: May 05, 2024 Has the PT tested + for MRSA If YES, has PT been informed?: No Medical Necessity Reason Pt with a Central, PICC or Fol: No Objective vital signs Vital Sign Date Time Temp Pulse Resp B/P (MAP) Pulse Ox O2 Delivery O2 Flow Rate FiO2 05/05/24 10:22 142/60 05/05/24 09:44 97.3 65 19 98 97.3 05/04/24 20:00 Room Air* 0 21 Total Intake and Output 05/04/24 05/04/24 05/05/24 14:59 22:59 06:59 Intake Total 990 ml 250 ml Output Total 920 ml 1100 ml 400 ml Balance -920 ml -110 ml -150 ml medications Current Medications Medications Dose Ordered Sig/Matt Route Start Time Stop Time Status Last Admin Dose Admin Acetaminophen/ Hydrocodone Bitart 1 tab Q4HPRN PRN PO 05/01/24 16:45 05/05/24 08:56 1 TAB Piperacillin Sod/ Tazobactam Sod 100 ml @ 25 mls/hr Q8H IV 05/01/24 22:00 05/05/24 05:46 25 MLS/HR Hydralazine HCl 10 mg Q6HP PRN IV 05/01/24 22:30 Ergocalciferol 50,000 unit Q7D PO 05/02/24 07:00 05/02/24 10:02 50,000 UNIT Losartan Potassium 50 mg BID PO 05/03/24 22:00 05/05/24 10:22 50 MG Amlodipine Besylate 5 mg DAILY PO 05/03/24 22:45 05/05/24 10:21 5 MG Potassium Chloride/Dextrose/ Sod Cl 1,000 ml @ 100 mls/hr Q10H IV 05/04/24 08:30 Hydromorphone HCl 0.5 mg Q3HPRN PRN IV 05/04/24 08:30 05/04/24 14:10 0.5 MG Pantoprazole Sodium 40 mg DAILY IV 05/05/24 10:00 05/05/24 10:21 40 MG Ondansetron HCl 4 mg Q4HPRN PRN IV 05/05/24 09:15 laboratory and microbiology Laboratory Tests 05/05/24 05:20 Test 05/05/24 05:20 Range/Units Serum Glucose 124 H 74-106 mg/dL Problem List/Assessment/Plan Problem List/Assessment/Plan 05/03/24 LENGTHY CONVERSATION WITH PATIENT, AFTER THOROUGH EXPLANATION SHE WISHES TO RESCIND THE DNR ORDERS TILL AFTER OPERATION, PATIENT'S TELEVISION NEWS PHOTOGRAPHER( NIECE) WAS AT BEDSIDE THROUGHOUT THIS CONVERSATION, OPERATION RISKS AND COMPLICATIONS EXPLAINED ONCE AGAIN 05/05/24 doing well, labs ok, advance dieat, home tomorrow Plan discussed with: Patient Dietary Evaluation Review Comments: 1. Continue Full Liquid diet per surgery discretion 2. Encourage good oral intakes of >50% of meals to meet est. needs 3. Appreciate daily weights to trend 4. Will assess need for snacks/oral supplements on FU pending PO Expected Outcomes/Goals: Adequate PO intakes, weight maintenance. ISHAAN MITCHELL MD May 05, 2024 11:03
--- NOTE | 2024-05-05 21:59 | DVHPNRES ---
Progress Note Date Seen: May 05, 2024 Resident Creating Document: SAMRA ARMAS RESIDENT Has the PT tested + for MRSA If YES, has PT been informed?: No Medical Necessity Reason Pt with a Central, PICC or Fol: No Subjective Review of Systems An 83-year-old female with PMHx of gallstones, overactive bladder, COPD, osteoporosis and appendectomy presents with 4 days of RUQ abdominal pain associated with nausea, vomiting, and diarrhea. Pain reportedly worsens when upright. She denies fevers, chills, chest pain, SOB, or dizziness. Patient is with a Pereyra's for intermittent catheterization. She has not been taking any medications at home aside from eyedrops. No recent antibiotic use. Symptoms have been improving since admission. She was evaluated with labs and imaging. WBC on admission was elevated at 15.6 trending down to 11.9. Total bilirubin was elevated at 2.6 with ALP 138. AST/ALT mildly elevated. CT A/P with IV contrast showed distended gallbladder with surrounding fat stranding concerning for acute cholecystitis. No ductal dilation. Gallbladder ultrasound was non-diagnostic. MRCP: 1. Cholelithiasis with multiple small calculi within the distal cystic duct, pericholecystic fluid. Findings are consistent with acute cholecystitis and 1.4 cm cystic lesion in the ventral distal pancreatic body favors intraductal papillary mucinous neoplasm. Surgery did cholecystectomy yesterday, no complications cardiology cleared the patient, ECHO didn't showed any abnormalities, and will need f/u due to possible pancreatic intraductal papillary mucinous neoplasm. Objective vital signs Vital Sign Date Time Temp Pulse Resp B/P (MAP) Pulse Ox O2 Delivery O2 Flow Rate FiO2 05/05/24 21:00 97.7 67 18 128/61 (83) 96 97.7 05/05/24 20:00 Room Air* 0 21 Total Intake and Output 05/04/24 05/04/24 05/05/24 15:00 23:00 07:00 Intake Total 990 ml 250 ml Output Total 920 ml 1100 ml 400 ml Balance -920 ml -110 ml -150 ml medications Current Medications Medications Dose Ordered Sig/Matt Route Start Time Stop Time Status Last Admin Dose Admin Acetaminophen/ Hydrocodone Bitart 1 tab Q4HPRN PRN PO 05/01/24 16:45 05/05/24 08:56 1 TAB Piperacillin Sod/ Tazobactam Sod 100 ml @ 25 mls/hr Q8H IV 05/01/24 22:00 05/05/24 16:00 25 MLS/HR Hydralazine HCl 10 mg Q6HP PRN IV 05/01/24 22:30 Ergocalciferol 50,000 unit Q7D PO 05/02/24 07:00 05/02/24 10:02 50,000 UNIT Losartan Potassium 50 mg BID PO 05/03/24 22:00 05/05/24 10:22 50 MG Amlodipine Besylate 5 mg DAILY PO 05/03/24 22:45 05/05/24 10:21 5 MG Potassium Chloride/Dextrose/ Sod Cl 1,000 ml @ 100 mls/hr Q10H IV 05/04/24 08:30 05/04/24 16:00 100 MLS/HR Hydromorphone HCl 0.5 mg Q3HPRN PRN IV 05/04/24 08:30 05/04/24 14:10 0.5 MG Pantoprazole Sodium 40 mg DAILY IV 05/05/24 10:00 05/05/24 10:21 40 MG Ondansetron HCl 4 mg Q4HPRN PRN IV 05/05/24 09:15 Examination General Appearance: Alert, Oriented X3, Cooperative HEENT: Atraumatic, PERRLA Respiratory: Clear to auscultation, Normal air movement Cardiovascular: Regular rate Abdominal: surgical wounds clean, no bleeding, no peritoneal signs, FLAKITO with minimal serosanguineous drainage Extremities: No clubbing, No cyanosis Skin: No rashes Neuro: Normal gait; no focal neurological deficits laboratory and microbiology Laboratory Tests 05/05/24 05:20 Test 05/05/24 05:20 Range/Units Serum Glucose 124 H 74-106 mg/dL Microbiology Date/Time Source Procedure Growth Status 05/01/24 12:55 Blood Blood Culture - Preliminary NO GROWTH AFTER 72 HOURS OF INCUBATION. 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 #Complicated UTI #Chronic obstructive uropathy; self catheterization #Hypertensive crisis; resolved #Hypokalemia #Constipation #Vitamin D deficiency #Transaminitis #Hyperbilirubinemia Advance diet as per surgery IV fluids per surgery Cardiology cleared for cholecystectomy per Dr Zendejas ECHO report: Preliminary echocardiogram reveals EF 55-60% without evidence of significant mitral valve/aortic valve stenosis Zosyn IV Potassium IV [place] and morphine for pain Losartan 50 mg BID Amlodipine Hydralazine PRN BP> 170 D/C tomorrow as per surgery Goals of care discussed with the patient; full code Case discussed with Dr. Steele Plan discussed with: Patient, Other (Nurse) My Orders My Orders Orders - SAMRA ARMAS RESIDENT Procedure Category Date Status Time Ondansetron Hcl PHA 05/05/24 In Process (Antonia) 09:15 Dietary Evaluation Review Comments: 1. Continue Full Liquid diet per surgery discretion 2. Encourage good oral intakes of >50% of meals to meet est. needs 3. Appreciate daily weights to trend 4. Will assess need for snacks/oral supplements on FU pending PO Expected Outcomes/Goals: Adequate PO intakes, weight maintenance. Addendum Addendum Addendum I was physically present for the stein portions of the service provided to patient by THE RESIDENT. I have reviewed the documentation, discussed the case with resident and agree with the resident's documentation except as noted. Also the patient's clinical case was discussed with the patient's nurse. This medical document was created using an electronic medical record system with computerized dictation system. Although this document has been carefully reviewed, there might still be some phonetic and typographical errors. These areas are purely typographical due to imperfections of the software programs, and do not reflect any compromise in the patient's medical care. Late signature. Date of Service: May 05, 2024 Billing Provider: JOLENE STEELE MD Common Visit Codes: [id number] INP/OBS CARE(HIGH) SAMRA ARMAS RESIDENT May 05, 2024 21:59 JOLENE STEEEL MD May 06, 2024 06:48
--- NOTE | 2024-05-05 22:45 | DVHPN2 ---
Progress Note - Dictate Date Seen: May 05, 2024 Has the PT tested + for MRSA If YES, has PT been informed?: No Medical Necessity Reason Pt with a Central, PICC or Fol: No Subjective No new complaints Patient is S/P laparoscopic cholecystectomy Patient resting comfortably Liver enzymes trending down vital signs Vital Sign Date Time Temp Pulse Resp B/P (MAP) Pulse Ox O2 Delivery O2 Flow Rate FiO2 05/05/24 22:10 128/61 05/05/24 21:00 97.7 67 18 96 97.7 05/05/24 20:00 Room Air* 0 21 Total Intake and Output 05/04/24 05/04/24 05/05/24 14:59 22:59 06:59 Intake Total 990 ml 250 ml Output Total 920 ml 1100 ml 400 ml Balance -920 ml -110 ml -150 ml medications Current Medications Medications Dose Ordered Sig/Matt Route Start Time Stop Time Status Last Admin Dose Admin Acetaminophen/ Hydrocodone Bitart 1 tab Q4HPRN PRN PO 05/01/24 16:45 05/05/24 08:56 1 TAB Piperacillin Sod/ Tazobactam Sod 100 ml @ 25 mls/hr Q8H IV 05/01/24 22:00 05/05/24 22:08 25 MLS/HR Hydralazine HCl 10 mg Q6HP PRN IV 05/01/24 22:30 Ergocalciferol 50,000 unit Q7D PO 05/02/24 07:00 05/02/24 10:02 50,000 UNIT Losartan Potassium 50 mg BID PO 05/03/24 22:00 05/05/24 22:10 50 MG Amlodipine Besylate 5 mg DAILY PO 05/03/24 22:45 05/05/24 10:21 5 MG Potassium Chloride/Dextrose/ Sod Cl 1,000 ml @ 100 mls/hr Q10H IV 05/04/24 08:30 05/04/24 16:00 100 MLS/HR Hydromorphone HCl 0.5 mg Q3HPRN PRN IV 05/04/24 08:30 05/04/24 14:10 0.5 MG Pantoprazole Sodium 40 mg DAILY IV 05/05/24 10:00 05/05/24 10:21 40 MG Ondansetron HCl 4 mg Q4HPRN PRN IV 05/05/24 09:15 objective General: NAD, AAOX3 Chest: lung liu clear to auscultation Heart: RRR, no murmur Abdomen: + right upper quadrant tenderness to palpation, +BS laboratory and microbiology Laboratory Tests 05/05/24 05:20 Test 05/05/24 05:20 Range/Units Serum Glucose 124 H 74-106 mg/dL Problems(with codes): (1) Sepsis, unspecified organism (2) Hypertensive urgency (3) Acute abdominal pain (4) Cholelithiasis and cholecystitis without obstruction Prognosis Plan Ambulate patient Advance diet as tolerated Discharge planning tentatively scheduled for a.m. Outpatient follow up with GI Services as needed Dietary Evaluation Review Comments: 1. Continue Full Liquid diet per surgery discretion 2. Encourage good oral intakes of >50% of meals to meet est. needs 3. Appreciate daily weights to trend 4. Will assess need for snacks/oral supplements on FU pending PO Expected Outcomes/Goals: Adequate PO intakes, weight maintenance. Plan discussed with: Patient NILDA GRAY MD May 05, 2024 22:45
[2024-05-06] VITALS (8 sets, daily range): BP systolic 104–139; BP diastolic 56–80; PULSE 57–78; RESP 18; TEMP 97.3–98.1; O2SAT 93–99
[2024-05-06] MEDS: BUPIVACAINE W/ EPINEPH 0.5% INJ 50ML MDV IJ ONE (08:01)
[2024-05-06] MEDS: SUCCINYLCHOLINE CHLORIDE 20 MG/ML 10ML VIAL IV ONE (08:02)
[2024-05-06] MEDS: ONDANSETRON HCL 4 MG/2 ML VIAL IV PRN (08:54)
--- NOTE | 2024-05-06 13:20 | DVH ---
EXAM: XY CHEST XRAY 1 VIEW TECHNIQUE: Single frontal chest radiograph CLINICAL HISTORY: cough COMPARISON: XY CHEST PORTABLE on DOS: 05/04/24 Findings/Impression: Frontal chest radiograph demonstrates no acute osseous or superficial soft tissue abnormalities. The trachea is midline. The cardiac silhouette and mediastinum are within normal limits. Low lung volumes with bronchovascular crowding. No pneumothorax, pleural effusions, or consolidations.
--- NOTE | 2024-05-06 14:02 | DVH ---
Indication: S/P CHOLECYSTECTOMY Technique: CT axial images of the abdomen and pelvis are obtained without contrast. Coronal and sagit jeyson reformats were obtained. Radiation Dose Information: CTDI volume is 18.66 mGy. Dose-length product is 921.35 mGy*cm Comparison: 05/01/2024 FINDINGS: There is limited interpretation of the abdomen and pelvis without administration of intravenous contr ast. Tiny bilateral pleural effusions. Coronary artery calcification disease. Bibasilar atelectasis. Smal l pericardial effusion. Adrenal glands, spleen and pancreas unremarkable in shape. Interval cholecystectomy. There is a surgi koby drain terminating in the subhepatic / gallbladder fossa space. Small amount of fluid / edema in t he gallbladder fossa. No large loculated collection identified. Liver unremarkable in shape. The bilateral kidneys demonstrate no hydronephrosis. Stomach is relatively nondistended. Small bowel loops are normal in caliber. Colonic diverticular disease. Moderate volume stool within the colon. Abdominal aortic atherosclerotic disease. Bladder distended. Pereyra catheter present. No significant free pelvic fluid. No inguinal lymphadenopathy. Chronic appearing compression deformities at L3, T12, T10. IMPRESSION: 1. Interval cholecystectomy. Surgical drain within the subhepatic space/gallbladder fossa with small amount of fluid but no loculated collections present. 2. Colonic diverticular disease. 3. Tiny bilateral pleural effusions. 4. Other findings as described
--- NOTE | 2024-05-06 16:12 | DVHPNRES ---
Progress Note Date Seen: May 06, 2024 Resident Creating Document: SAMRA ARMAS RESIDENT Has the PT tested + for MRSA If YES, has PT been informed?: No Medical Necessity Reason Pt with a Central, PICC or Fol: No Subjective Review of Systems An 83-year-old female with PMHx of gallstones, overactive bladder, COPD, osteoporosis and appendectomy presents with 4 days of RUQ abdominal pain associated with nausea, vomiting, and diarrhea. Pain reportedly worsens when upright. She denies fevers, chills, chest pain, SOB, or dizziness. Patient is with a Pereyra's for intermittent catheterization. She has not been taking any medications at home aside from eyedrops. No recent antibiotic use. Symptoms have been improving since admission. She was evaluated with labs and imaging. WBC on admission was elevated at 15.6 trending down to 11.9. Total bilirubin was elevated at 2.6 with ALP 138. AST/ALT mildly elevated. CT A/P with IV contrast showed distended gallbladder with surrounding fat stranding concerning for acute cholecystitis. No ductal dilation. Gallbladder ultrasound was non-diagnostic. MRCP: 1. Cholelithiasis with multiple small calculi within the distal cystic duct, pericholecystic fluid. Findings are consistent with acute cholecystitis and 1.4 cm cystic lesion in the ventral distal pancreatic body favors intraductal papillary mucinous neoplasm. Surgery did cholecystectomy 05/04/24, no complications cardiology cleared the patient, ECHO didn't showed any abnormalities, and will need f/u due to possible pancreatic intraductal papillary mucinous neoplasm. Today patient wbc started to trend high, also patient stated abdominal pain: blood cultures, urine culture, xray and ct scan were ordered, no DC for now Objective vital signs Vital Sign Date Time Temp Pulse Resp B/P (MAP) Pulse Ox O2 Delivery O2 Flow Rate FiO2 05/06/24 14:28 65 24 121/65 05/06/24 13:00 98.0 99 98.0 05/05/24 20:00 Room Air* 0 21 Total Intake and Output 05/05/24 05/05/24 05/06/24 15:00 23:00 07:00 Intake Total 325 ml 800 ml Output Total 50 ml 1100 ml 1200 ml Balance -50 ml -775 ml -400 ml medications Current Medications Medications Dose Ordered Sig/Matt Route Start Time Stop Time Status Last Admin Dose Admin Acetaminophen/ Hydrocodone Bitart 1 tab Q4HPRN PRN PO 05/01/24 16:45 05/06/24 08:54 1 TAB Piperacillin Sod/ Tazobactam Sod 100 ml @ 25 mls/hr Q8H IV 05/01/24 22:00 05/06/24 14:24 25 MLS/HR Hydralazine HCl 10 mg Q6HP PRN IV 05/01/24 22:30 Ergocalciferol 50,000 unit Q7D PO 05/02/24 07:00 05/02/24 10:02 50,000 UNIT Losartan Potassium 50 mg BID PO 05/03/24 22:00 05/06/24 10:39 50 MG Amlodipine Besylate 5 mg DAILY PO 05/03/24 22:45 05/06/24 10:39 5 MG Potassium Chloride/Dextrose/ Sod Cl 1,000 ml @ 100 mls/hr Q10H IV 05/04/24 08:30 05/04/24 16:00 100 MLS/HR Hydromorphone HCl 0.5 mg Q3HPRN PRN IV 05/04/24 08:30 05/06/24 14:28 0.5 MG Pantoprazole Sodium 40 mg DAILY IV 05/05/24 10:00 05/06/24 10:37 40 MG Ondansetron HCl 4 mg Q4HPRN PRN IV 05/05/24 09:15 05/06/24 08:54 4 MG Examination General Appearance: Alert, Oriented X3, Cooperative HEENT: Atraumatic, PERRLA Respiratory: Clear to auscultation, Normal air movement Cardiovascular: Regular rate Abdominal: tenderness at palpation, surgical wounds clean, no bleeding, no peritoneal signs, FLAKITO with minimal serosanguineous drainage Extremities: No clubbing, No cyanosis Skin: No rashes Neuro: Normal gait; no focal neurological deficits laboratory and microbiology Laboratory Tests 05/05/24 05:20 Test 05/05/24 05:20 Range/Units Serum Glucose 124 H 74-106 mg/dL Microbiology Date/Time Source Procedure Growth Status 05/01/24 12:55 Blood Blood Culture - Final NO GROWTH AFTER 5 DAYS OF INCUBATION. 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 #Complicated UTI #Chronic obstructive uropathy; self catheterization #Hypertensive crisis; resolved #Hypokalemia #Constipation #Vitamin D deficiency #Transaminitis #Hyperbilirubinemia Advance diet as per surgery IV fluids per surgery Cardiology cleared for cholecystectomy per Dr Zendejas ECHO report: Preliminary echocardiogram reveals EF 55-60% without evidence of significant mitral valve/aortic valve stenosis Zosyn IV Potassium IV [place] and morphine for pain Losartan 50 mg BID Amlodipine Hydralazine PRN BP> [address] scan: no colections, cholecystectomy changes chest x ray no changes compared with the one in 05/04 urine and blood cultures Goals of care discussed with the patient; full code Case discussed with Dr. Pearson Plan discussed with: Patient, Other (rn) My Orders My Orders Orders - SAMRA ARMAS RESIDENT Procedure Category Date Status Time Blood Culture KAMRAN 05/06/24 In Process 11:25 Urine Bacterial KAMRAN 05/06/24 Uncollected Culture 11:25 Chest Xray 1 View XY 05/06/24 Resulted 11:25 Ct Ab Pel Wo Con-No CT 05/06/24 Resulted Oral Or Iv 11:30 Dietary Evaluation Review Comments: 1. Continue Full Liquid diet per surgery discretion 2. Encourage good oral intakes of >50% of meals to meet est. needs 3. Appreciate daily weights to trend 4. Will assess need for snacks/oral supplements on FU pending PO Expected Outcomes/Goals: Adequate PO intakes, weight maintenance. Date of Service: May 06, 2024 Billing Provider: CHESTER PEARSON MD Common Visit Codes: [id number] INP/OBS CARE(HIGH) SAMRA ARMAS RESIDENT May 06, 2024 16:12 CHESTER PEARSON MD May 06, 2024 22:21
[2024-05-06 18:23] LABS: Urine Bacteria None Seen /hpf (None Seen)
[2024-05-06 18:37] LABS: Urine Blood Negative /uL (Negative); Urine Clarity Clear (Clear); Urine Color Colorless (Yellow); Urine Protein, UAD Negative (Negative); Urine Specific Gravity 1.005 (1.001-1.035); Urine Squamous Epithelial Cell FEW /hpf (<5); Urine Urobilinogen Normal (Negative); Urine WBC < 1 /HPF (0-5); Urine pH 6.5 (5.0-9.0)
--- NOTE | 2024-05-06 23:10 | DVHPN2 ---
Progress Note - Dictate Date Seen: May 06, 2024 Has the PT tested + for MRSA If YES, has PT been informed?: No Medical Necessity Reason Pt with a Central, PICC or Fol: No Subjective No new complaints Patient is S/P laparoscopic cholecystectomy Patient resting comfortably Liver enzymes trending down vital signs Vital Sign Date Time Temp Pulse Resp B/P (MAP) Pulse Ox O2 Delivery O2 Flow Rate FiO2 05/06/24 21:40 128/66 05/06/24 21:00 97.7 78 18 93 97.7 05/06/24 20:00 Nasal Cannula* 2 28 Total Intake and Output 05/05/24 05/05/24 05/06/24 15:00 23:00 07:00 Intake Total 325 ml 800 ml Output Total 50 ml 1100 ml 1200 ml Balance -50 ml -775 ml -400 ml medications Current Medications Medications Dose Ordered Sig/Matt Route Start Time Stop Time Status Last Admin Dose Admin Acetaminophen/ Hydrocodone Bitart 1 tab Q4HPRN PRN PO 05/01/24 16:45 05/06/24 08:54 1 TAB Piperacillin Sod/ Tazobactam Sod 100 ml @ 25 mls/hr Q8H IV 05/01/24 22:00 05/06/24 21:35 25 MLS/HR Hydralazine HCl 10 mg Q6HP PRN IV 05/01/24 22:30 Ergocalciferol 50,000 unit Q7D PO 05/02/24 07:00 05/02/24 10:02 50,000 UNIT Losartan Potassium 50 mg BID PO 05/03/24 22:00 05/06/24 21:40 50 MG Amlodipine Besylate 5 mg DAILY PO 05/03/24 22:45 05/06/24 10:39 5 MG Potassium Chloride/Dextrose/ Sod Cl 1,000 ml @ 100 mls/hr Q10H IV 05/04/24 08:30 05/04/24 16:00 100 MLS/HR Hydromorphone HCl 0.5 mg Q3HPRN PRN IV 05/04/24 08:30 05/06/24 14:28 0.5 MG Pantoprazole Sodium 40 mg DAILY IV 05/05/24 10:00 05/06/24 10:37 40 MG Ondansetron HCl 4 mg Q4HPRN PRN IV 05/05/24 09:15 3/29/25 08:54 4 MG objective General: NAD, AAOX3 Chest: lung liu clear to auscultation Heart: RRR, no murmur Abdomen: + right upper quadrant tenderness to palpation, +BS laboratory and microbiology Laboratory Tests 05/05/24 05:20 Test 05/05/24 05:20 Range/Units Serum Glucose 124 H 74-106 mg/dL Problems(with codes): (1) Sepsis, unspecified organism (2) Hypertensive urgency (3) Acute abdominal pain (4) Cholelithiasis and cholecystitis without obstruction Prognosis Plan Ambulate patient Advance diet as tolerated Discharge planning tentatively scheduled for a.m. Outpatient follow up with GI Services as needed Dietary Evaluation Review Comments: 1. Continue Full Liquid diet per surgery discretion 2. Encourage good oral intakes of >50% of meals to meet est. needs 3. Appreciate daily weights to trend 4. Will assess need for snacks/oral supplements on FU pending PO Expected Outcomes/Goals: Adequate PO intakes, weight maintenance. Plan discussed with: Other (Nurse) NILDA GRAY MD May 06, 2024 23:10
[2024-05-07] VITALS (8 sets, daily range): BP systolic 107–147; BP diastolic 61–81; PULSE 70–81; RESP 18–20; TEMP 97.5–98.7; O2SAT 90–98
[2024-05-07 07:51] LABS: Basophils # (auto) 0 10 ^3/uL (0-0.2); Basophils % (auto) 0.6 % (0.0-2.0); Eosinophils # (auto) 0.2 10 ^3/uL (0-0.8); Eosinophils % (auto) 2.3 % (0.0-7.0); Hematocrit 35.3 % (36.0-46.0); Hemoglobin 12.5 g/dL (12.2-16.2); Lymphocytes # (auto) 1.6 10 ^3/uL (0.4-5.4); Lymphocytes % (auto) 19.8 % (10.0-50.0); Mean Corpuscular Hemoglobin 32.4 pg (28.0-32.0); Mean Corpuscular Hgb Conc. 35.2 g/dL (32.0-36.0); Monocytes # (auto) 0.7 10 ^3/uL (0-1.3); Neutrophils # (auto) 5.6 10 ^3/uL (1.6-8.6); Neutrophils % (auto) 68.3 % (37.0-80.0); Platelet Count (auto) 227 10^3/uL (140-450); Red Blood Cells 3.84 10^6/uL (4.0-5.20); Red Cell Distribution Width 13.1 % (11.8-14.3); White Blood Cell 8.3 10^3/uL (4.4-10.8)
[2024-05-07 08:04] LABS: Alanine Aminotransferase 40 U/L (7-40); Albumin 3.5 g/dL (3.2-4.8); Alkaline Phosphatase 78 U/L (46-116); Anion Gap 8 (5-15); Aspartate Aminotransferase 22 U/L (13-40); BUN/Creatinine Ratio 6.3 (10.0-20.0); Bilirubin, Total 0.4 mg/dL (0.2-1.0); Blood Urea Nitrogen < 5 mg/dL (9-23); Calcium 8.9 mg/dL (8.7-10.4); Carbon Dioxide 30 mmol/L (20-31); Chloride 100 mmol/L (98-107); Glucose 99 mg/dL (74-106); Potassium 3.3 mmol/L (3.5-5.1); Sodium 138 mmol/L (136-145)
[2024-05-07] MEDS: SODIUM CHL 0.9% 100 ML IV SCH (11:15)
--- NOTE | 2024-05-07 11:58 | DVHPN2 ---
Subjective Date Seen: May 07, 2024 Post op day Post op day: 3 Patient reports: Other (right side abdominal pain from andrew drain site ) General: Normal HNT: Normal Cardiovascular: Normal Respiratory: Normal Gastrointestinal: Other (right side abdominal pain ) Genitourinary: Normal Musculoskeletal: Normal Neurological: Normal Objective Vitals Vital Sign Date Time Temp Pulse Resp B/P (MAP) Pulse Ox O2 Delivery O2 Flow Rate FiO2 05/07/24 10:23 123/70 05/07/24 08:10 Room Air* 0 21 05/07/24 08:00 73 05/07/24 05:00 98.7 18 98 98.7 Total Intake and Output 05/06/24 05/06/24 05/07/24 15:00 23:00 07:00 Intake Total 300 ml 500 ml 900 ml Output Total 600 ml 240 ml Balance 300 ml -100 ml 660 ml Medications Current Medications Medications Dose Ordered Sig/Matt Route Start Time Stop Time Status Last Admin Dose Admin Acetaminophen/ Hydrocodone Bitart 1 tab Q4HPRN PRN PO 05/01/24 16:45 05/06/24 08:54 1 TAB Piperacillin Sod/ Tazobactam Sod 100 ml @ 25 mls/hr Q8H IV 05/01/24 22:00 05/07/24 05:29 25 MLS/HR Hydralazine HCl 10 mg Q6HP PRN IV 05/01/24 22:30 Ergocalciferol 50,000 unit Q7D PO 05/02/24 07:00 05/02/24 10:02 50,000 UNIT Losartan Potassium 50 mg BID PO 05/03/24 22:00 05/07/24 10:23 50 MG Amlodipine Besylate 5 mg DAILY PO 05/03/24 22:45 05/07/24 10:23 5 MG Hydromorphone HCl 0.5 mg Q3HPRN PRN IV 05/04/24 08:30 05/06/24 14:28 0.5 MG Pantoprazole Sodium 40 mg DAILY IV 05/05/24 10:00 05/07/24 10:23 40 MG Ondansetron HCl 4 mg Q4HPRN PRN IV 05/05/24 09:15 05/06/24 08:54 4 MG Potassium Chloride 50 ml @ 25 mls/hr Q2H IV 05/07/24 11:15 05/07/24 15:14 Potassium Chloride/Sodium Chloride 1,000 ml @ 100 mls/hr Q10H IV 05/07/24 11:15 Sodium Chloride 100 ml @ 50 mls/hr Q2H IV 05/07/24 11:15 05/07/24 15:14 General: Normal, Well developed Head/Eyes: Normal ENT: Normal Neck: Normal Lungs: Normal Cardiovascular: Normal, Regular rate and rhythm, Normal heart sound Musculoskeletal: Normal Extremities: Normal, No clubbing Skin: Normal, Normal inspection, Normal color, Warm Neurological: Normal, Normal Speech Labs and Microbiology Laboratory Tests 05/07/24 06:16 Test 05/07/24 06:16 Range/Units Serum Glucose 99 74-106 mg/dL Ass/Plan Labs and/or images reviewed: Labs reviewed by me, Image(s) reviewed by me Problem List #s/p cholecystectomy #Sepsis due to: #Acute cholecystitis #Ruled out choledocholithiasis #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 #Complicated UTI #Chronic obstructive uropathy; self catheterization #Hypertensive crisis; resolved #Hypokalemia #Constipation #Vitamin D deficiency #Transaminitis #Hyperbilirubinemia Advance diet as per surgery IV fluids per surgery Cardiology cleared for cholecystectomy per Dr Zendejas ECHO report: Preliminary echocardiogram reveals EF 55-60% without evidence of significant mitral valve/aortic valve stenosis Zosyn IV Potassium IV [place] and morphine for pain Losartan 50 mg BID Amlodipine Hydralazine PRN BP> [address] scan: no colections, cholecystectomy changes chest x ray no changes compared with the one in 05/04 urine and blood cultures Goals of care discussed with the patient; full code Case discussed with Dr. Jones Assessment/Plan s/p laparoscopic cholecystectomy POD# 3 patient complaint of right side abdominal pain around ANDREW site are tender to palpation , review of CT from yesterday : IMPRESSION: 1. Interval cholecystectomy. Surgical drain within the subhepatic space/gallbladder fossa with small amount of fluid but no loculated collections present. 2. Colonic diverticular disease. 3. Tiny bilateral pleural effusions. 4. Other findings as described tolerating diet, nausea with pain , relief with Zofran and pain medication denies vomiting tolerating diet WBC normal ANDREW drain minimal serous fluid Plan: patient to ambulate every 4 hours incentive spirometer Prognosis: Excellent Plan discussed with patient Visit Coding Surgery Date of Service if different f: May 07, 2024 Billing Provider: ISHAAN ZENDEJAS MD Surgery Visit Codes: [id number] INP/OBS CARE(HIGH) KIP KILGORE DNP May 07, 2024 11:58
--- NOTE | 2024-05-07 12:25 | DVHPN2 ---
Subjective FEELS BETTER BUT STILL SOME PAIN IN THE RIGHT ABDOMEN Reviewed: Care Plan, H&P, Labs, Medications, Previous Orders, Radiology, Other ([employer]) Changes from previous H/P or p: No Changes Objective Vitals Vital Signs Date Time Temp Pulse Resp B/P (MAP) Pulse Ox O2 Delivery O2 Flow Rate FiO2 05/07/24 10:23 123/70 05/07/24 08:10 Room Air* 0 21 05/07/24 08:00 73 05/07/24 05:00 98.7 18 98 98.7 Intake/Output Intake and Output 05/07/24 07:00 Intake Total 1700 ml Output Total 840 ml Balance 860 ml Intake Oral 1400 ml IV Total 300 ml Output Urine Total 800 ml Drainage Total 40 ml General Appearance: Alert, Oriented X3, Cooperative, No acute distress HEENT: Atraumatic Lungs: Clear to auscultation Cardiovascular: Regular rate Abdomen: Other (Tenderness in the right abdominal area/expected postoperatively) Medications Current Medications Medications Dose Ordered Sig/Matt Route Start Time Stop Time Status Last Admin Dose Admin Acetaminophen/ Hydrocodone Bitart 1 tab Q4HPRN PRN PO 05/01/24 16:45 05/06/24 08:54 1 TAB Piperacillin Sod/ Tazobactam Sod 100 ml @ 25 mls/hr Q8H IV 05/01/24 22:00 05/07/24 05:29 25 MLS/HR Hydralazine HCl 10 mg Q6HP PRN IV 05/01/24 22:30 Ergocalciferol 50,000 unit Q7D PO 05/02/24 07:00 05/02/24 10:02 50,000 UNIT Losartan Potassium 50 mg BID PO 05/03/24 22:00 05/07/24 10:23 50 MG Amlodipine Besylate 5 mg DAILY PO 05/03/24 22:45 05/07/24 10:23 5 MG Hydromorphone HCl 0.5 mg Q3HPRN PRN IV 05/04/24 08:30 05/06/24 14:28 0.5 MG Pantoprazole Sodium 40 mg DAILY IV 05/05/24 10:00 05/07/24 10:23 40 MG Ondansetron HCl 4 mg Q4HPRN PRN IV 05/05/24 09:15 05/06/24 08:54 4 MG Potassium Chloride 50 ml @ 25 mls/hr Q2H IV 05/07/24 11:15 05/07/24 15:14 Potassium Chloride/Sodium Chloride 1,000 ml @ 100 mls/hr Q10H IV 05/07/24 11:15 Sodium Chloride 100 ml @ 50 mls/hr Q2H IV 05/07/24 11:15 05/07/24 15:14 Laboratory Results Laboratory Tests 05/07/24 06:16 Chemistry Test 05/07/24 06:16 Albumin 3.5 g/dL (3.2-4.8) Calcium Level 8.9 mg/dL (8.7-10.4) Total Protein 6.0 g/dL (5.7-8.2) LFT Test 05/07/24 06:16 Alanine Aminotransferase (ALT) 40 U/L (7-40) Alkaline Phosphatase 78 U/L (46-116) Aspartate Amino Transferase (AST) 22 U/L (13-40) Total Bilirubin 0.4 mg/dL (0.2-1.0) Urinalysis Test 05/01/24 11:50 05/06/24 18:00 Urine WBC Clumps Present /hpf (None Seen) Urine Mucus Few (None Seen) Urine Color Colorless (Yellow) Urine Clarity Clear (Clear) Urine pH 6.5 (5.0-9.0) Urine Specific [place] 1.005 (1.001-1.035) Urine Protein Negative (Negative) Urine Ketones Negative (Negative) Urine Blood Negative /uL (Negative) Urine Nitrite Negative (Negative) Urine Bilirubin Negative (Negative) Urine Urobilinogen Normal mg/dL (Negative) Urine Leukocyte Esterase Negative /uL (Negative) Urine RBC <1 /hpf (0 - 4) Urine Microscopic WBC < 1 /HPF (0-5) Urine Squamous Epithelial Cells Few /hpf (<5) Urine Bacteria None seen /hpf (None Seen) Urine Glucose Normal mg/dL (Normal) Microbiology Microbiology Date/Time Source Procedure Growth Status 05/06/24 08:00 Abdomen Gram Stain - Final Resulted 05/06/24 08:00 Abdomen Anaerobic Culture Pending Resulted 05/06/24 08:00 Abdomen Aerobic Culture - Preliminary Resulted 05/01/24 12:55 Blood Blood Culture - Final NO GROWTH AFTER 5 DAYS OF INCUBATION. Complete 05/01/24 11:50 Voided Urine Urine Culture - Final Complete Assessment/Plan Assessment/Plan Status post laparoscopic cholecystectomy Cholecystitis and sepsis UTI Pancreatic IPMN COPD Hypertension Vitamin-D deficiency Plan: Continue current plan of care. Replace potassium. Change IV fluid to normal saline with 40 potassium. Repeat labs. Further plan per orders Plan discussed with: Patient My Orders Orders - CHESTER PEARSON MD Procedure Category Date Status Time Potassium Chl PHA 05/07/24 In Process 20meq/50ml (Potassium 11:15 Sod Chl 0.9%/ Kcl PHA 05/07/24 In Process 40meq 11:15 Sodium Chl 0.9% PHA 05/07/24 In Process (Sodium Chloride) 11:15 Date of Service: May 07, 2024 Billing Provider: CHESTER PEARSON MD Common Visit Codes: [id number] INP/OBS CARE(HIGH) CHESTER PEARSON MD May 07, 2024 12:25
[2024-05-07] MEDS: POTASSIUM CHL 20MEQ/50ML 50 ML IV SCH (12:55)
[2024-05-07] MEDS: SOD CHL 0.9%/ KCL 40MEQ 1,000 ML IV SCH (12:56)
--- NOTE | 2024-05-07 21:31 | DVHPN2 ---
Progress Note - Dictate Date Seen: May 07, 2024 Has the PT tested + for MRSA If YES, has PT been informed?: No Medical Necessity Reason Pt with a Central, PICC or Fol: No Subjective No new complaints ; continued mild right upper quadrant pain Patient is Post op Day # 3 S/P laparoscopic cholecystectomy Patient resting comfortably Liver enzymes trending down vital signs Vital Sign Date Time Temp Pulse Resp B/P (MAP) Pulse Ox O2 Delivery O2 Flow Rate FiO2 05/07/24 21:00 98.6 78 18 121/76 (91) 96 98.6 05/07/24 08:10 Room Air* 0 21 Total Intake and Output 05/06/24 05/06/24 05/07/24 15:00 23:00 07:00 Intake Total 300 ml 500 ml 900 ml Output Total 600 ml 240 ml Balance 300 ml -100 ml 660 ml medications Current Medications Medications Dose Ordered Sig/Matt Route Start Time Stop Time Status Last Admin Dose Admin Acetaminophen/ Hydrocodone Bitart 1 tab Q4HPRN PRN PO 05/01/24 16:45 05/06/24 08:54 1 TAB Piperacillin Sod/ Tazobactam Sod 100 ml @ 25 mls/hr Q8H IV 05/01/24 22:00 05/07/24 05:29 25 MLS/HR Hydralazine HCl 10 mg Q6HP PRN IV 05/01/24 22:30 Ergocalciferol 50,000 unit Q7D PO 05/02/24 07:00 05/02/24 10:02 50,000 UNIT Losartan Potassium 50 mg BID PO 05/03/24 22:00 05/07/24 10:23 50 MG Amlodipine Besylate 5 mg DAILY PO 05/03/24 22:45 05/07/24 10:23 5 MG Hydromorphone HCl 0.5 mg Q3HPRN PRN IV 05/04/24 08:30 05/07/24 17:09 0.5 MG Pantoprazole Sodium 40 mg DAILY IV 05/05/24 10:00 05/07/24 10:23 40 MG Ondansetron HCl 4 mg Q4HPRN PRN IV 05/05/24 09:15 05/06/24 08:54 4 MG Potassium Chloride/Sodium Chloride 1,000 ml @ 100 mls/hr Q10H IV 05/07/24 11:15 05/07/24 12:56 100 MLS/HR objective General: NAD, AAOX3 Chest: lung liu clear to auscultation Heart: RRR, no murmur Abdomen: + right upper quadrant tenderness to palpation, +BS laboratory and microbiology Laboratory Tests 05/07/24 06:16 Test 05/07/24 06:16 Range/Units Serum Glucose 99 74-106 mg/dL Repeat CT SCAN ABD/PELVIS IMPRESSION: 1. Interval cholecystectomy. Surgical drain within the subhepatic space/gallbladder fossa with small amount of fluid but no loculated collections present. 2. Colonic diverticular disease. 3. Tiny bilateral pleural effusions. 4. Other findings as described Problems(with codes): (1) Sepsis, unspecified organism (2) Hypertensive urgency (3) Acute abdominal pain (4) Cholelithiasis and cholecystitis without obstruction Prognosis Plan Continue supportive care Physical therapy Incentive spirometry Ambulate patient Discharge planning as per hospitalist Outpatient follow up with GI Services as needed Dietary Evaluation Review Comments: 1. Continue Full Liquid diet per surgery discretion 2. Encourage good oral intakes of >50% of meals to meet est. needs 3. Appreciate daily weights to trend 4. Will assess need for snacks/oral supplements on FU pending PO Expected Outcomes/Goals: Adequate PO intakes, weight maintenance. Plan discussed with: Patient NILDA GRAY MD May 07, 2024 21:31
[2024-05-08] VITALS (7 sets, daily range): BP systolic 122–148; BP diastolic 55–83; PULSE 68–82; RESP 16–20; TEMP 36.8; O2SAT 92–97
[2024-05-08 07:07] LABS: Alanine Aminotransferase 32 U/L (7-40); Albumin 3.7 g/dL (3.2-4.8); Alkaline Phosphatase 81 U/L (46-116); Anion Gap 7 (5-15); BUN/Creatinine Ratio 6.3 (10.0-20.0); Blood Urea Nitrogen < 5 mg/dL (9-23); Calcium 9.2 mg/dL (8.7-10.4); Carbon Dioxide 30 mmol/L (20-31); Chloride 102 mmol/L (98-107); Glucose 99 mg/dL (74-106); Potassium 3.9 mmol/L (3.5-5.1); Sodium 139 mmol/L (136-145); Total Protein 6.2 g/dL (5.7-8.2)
[2024-05-08 07:08] LABS: Aspartate Aminotransferase 18 U/L (13-40); Bilirubin, Total 0.5 mg/dL (0.2-1.0)
--- NOTE | 2024-05-08 10:34 | DVHPN2 ---
Subjective Date Seen: May 08, 2024 Post op day Post op day: 4 Patient reports: Other (right side abdominal pain from andrew drain site ) General: Normal HNT: Normal Cardiovascular: Normal Respiratory: Normal Gastrointestinal: Other (right side abdominal pain ) Genitourinary: Normal Musculoskeletal: Normal Neurological: Normal Objective Vitals Vital Sign Date Time Temp Pulse Resp B/P (MAP) Pulse Ox O2 Delivery O2 Flow Rate FiO2 05/08/24 09:21 98.3 82 18 130/74 (92) 97 98.3 05/07/24 20:00 Nasal Cannula* 2 28 Total Intake and Output 05/07/24 05/07/24 05/08/24 15:00 23:00 07:00 Intake Total 400 ml 850 ml 340 ml Output Total 1450 ml 2400 ml Balance 400 ml -600 ml -2060 ml Medications Current Medications Medications Dose Ordered Sig/Matt Route Start Time Stop Time Status Last Admin Dose Admin Acetaminophen/ Hydrocodone Bitart 1 tab Q4HPRN PRN PO 05/01/24 16:45 05/06/24 08:54 1 TAB Piperacillin Sod/ Tazobactam Sod 100 ml @ 25 mls/hr Q8H IV 05/01/24 22:00 05/08/24 06:03 25 MLS/HR Hydralazine HCl 10 mg Q6HP PRN IV 05/01/24 22:30 Ergocalciferol 50,000 unit Q7D PO 05/02/24 07:00 05/02/24 10:02 50,000 UNIT Losartan Potassium 50 mg BID PO 05/03/24 22:00 05/08/24 09:05 50 MG Amlodipine Besylate 5 mg DAILY PO 05/03/24 22:45 05/08/24 09:04 5 MG Hydromorphone HCl 0.5 mg Q3HPRN PRN IV 05/04/24 08:30 05/07/24 17:09 0.5 MG Pantoprazole Sodium 40 mg DAILY IV 05/05/24 10:00 05/08/24 09:05 40 MG Ondansetron HCl 4 mg Q4HPRN PRN IV 05/05/24 09:15 05/06/24 08:54 4 MG Potassium Chloride/Sodium Chloride 1,000 ml @ 100 mls/hr Q10H IV 05/07/24 11:15 05/07/24 12:56 100 MLS/HR General: Normal, Well developed Head/Eyes: Normal ENT: Normal Neck: Normal Lungs: Normal Cardiovascular: Normal, Regular rate and rhythm, Normal heart sound Musculoskeletal: Normal Extremities: Normal, No clubbing Skin: Normal, Normal inspection, Normal color, Warm Neurological: Normal, Normal Speech Labs and Microbiology Laboratory Tests 05/08/24 05:59 05/07/24 06:16 Test 05/08/24 05:59 Range/Units Serum Glucose 99 74-106 mg/dL Ass/Plan Labs and/or images reviewed: Labs reviewed by me, Image(s) reviewed by me Problem List #s/p cholecystectomy #Sepsis due to: #Acute cholecystitis #Ruled out choledocholithiasis #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 #Complicated UTI #Chronic obstructive uropathy; self catheterization #Hypertensive crisis; resolved #Hypokalemia #Constipation #Vitamin D deficiency #Transaminitis #Hyperbilirubinemia Advance diet as per surgery IV fluids per surgery Cardiology cleared for cholecystectomy per Dr Zendejas ECHO report: Preliminary echocardiogram reveals EF 55-60% without evidence of significant mitral valve/aortic valve stenosis Zosyn IV Potassium IV Goodman and morphine for pain Losartan 50 mg BID Amlodipine Hydralazine PRN BP> [address] scan: no colections, cholecystectomy changes chest x ray no changes compared with the one in 05/04 urine and blood cultures Goals of care discussed with the patient; full code Case discussed with Dr. Jones Assessment/Plan s/p laparoscopic cholecystectomy POD# 3 patient complaint of right side abdominal pain around ANDREW site are tender to palpation , review of CT from yesterday : IMPRESSION: 1. Interval cholecystectomy. Surgical drain within the subhepatic space/gallbladder fossa with small amount of fluid but no loculated collections present. 2. Colonic diverticular disease. 3. Tiny bilateral pleural effusions. 4. Other findings as described tolerating diet, nausea with pain , relief with Zofran and pain medication denies vomiting tolerating diet WBC normal ANDREW drain minimal serous fluid Plan: patient to ambulate every 4 hours incentive spirometer 05/08/24 abdomen soft, non distended, appropriately tender, passing gas , tolerating diet patient doing well, ANDREW drain minimal serous fluid ANDREW was removed, patient right side per patient feels much better after drain removal Plan: Ok to discharge per surgery point of view patient to follow up in surgery clinic in 2 weeks may shower in 24 hours Prognosis: Excellent Plan discussed with patient, Dr. Zendejas Visit Coding Surgery Date of Service if different f: May 08, 2024 Billing Provider: ISHAAN ZENDEJAS MD Surgery Visit Codes: [id number] INP/OBS CARE(HIGH) KIP KILGORE DNP May 08, 2024 10:34
[2024-05-08] MEDS: LACTULOSE 20Gm/30ML SOLN PO ONE (11:33)
[2024-05-08] MEDS ORDERED: IBUP-1453 PO (12:25)
[2024-05-08] MEDS ORDERED: LOSA-534 PO (12:25)
[2024-05-08] MEDS ORDERED: AML5T PO (12:25)
[2024-05-08] MEDS ORDERED: CIPR500T4 PO (12:25)
--- NOTE | 2024-05-08 13:25 | DVHDSRES ---
Discharge Summary Date of Admission Resident Creating Document: SAMRA ARMAS RESIDENT May 01, 2024 at 16:34 Date of Discharge: May 08, 2024 Admitting Diagnosis sepsis due to acute cholecystitis Labs/Diagnostic Data: Laboratory Results Test 05/08/24 05:59 05/07/24 06:16 05/06/24 18:00 05/02/24 05:52 Sodium Level 139 mmol/L (136-145) Potassium Level 3.9 mmol/L (3.5-5.1) Chloride Level 102 mmol/L (98-107) Carbon Dioxide Level 30 mmol/L (20-31) Anion Gap 7 (5-15) Blood Urea Nitrogen < 5 mg/dL (9-23) Creatinine 0.79 mg/dL (0.550-1.02) Glomerular Filtration Rate Calc 75 mL/min (>90) BUN/Creatinine Ratio 6.3 (10.0-20.0) Serum Glucose 99 mg/dL (74-106) Calcium Level 9.2 mg/dL (8.7-10.4) Total Bilirubin 0.5 mg/dL (0.2-1.0) Aspartate Amino Transferase (AST) 18 U/L (13-40) Alanine Aminotransferase (ALT) 32 U/L (7-40) Alkaline Phosphatase 81 U/L (46-116) Total Protein 6.2 g/dL (5.7-8.2) Albumin 3.7 g/dL (3.2-4.8) White Blood Count 8.3 10^3/uL (4.4-10.8) Red Blood Count 3.84 10^6/uL (4.0-5.20) Hemoglobin 12.5 g/dL (12.2-16.2) Hematocrit 35.3 % (36.0-46.0) Mean Corpuscular Volume 92.0 fL (80.0-100.0) Mean Corpuscular Hemoglobin 32.4 pg (28.0-32.0) Mean Corpuscular Hemoglobin Concent 35.2 g/dL (32.0-36.0) Red Cell Distribution Width 13.1 % (11.8-14.3) Platelet Count 227 10^3/uL (140-450) Mean Platelet Volume 8.8 fL (6.9-10.8) Neutrophils (%) (Auto) 68.3 % (37.0-80.0) Lymphocytes (%) (Auto) 19.8 % (10.0-50.0) Monocytes (%) (Auto) 9.0 % (0.0-12.0) Eosinophils (%) (Auto) 2.3 % (0.0-7.0) Basophils (%) (Auto) 0.6 % (0.0-2.0) Neutrophils # (Auto) 5.6 10 ^3/uL (1.6-8.6) Lymphocytes # (Auto) 1.6 10 ^3/uL (0.4-5.4) Monocytes # (Auto) 0.7 10 ^3/uL (0-1.3) Eosinophils # (Auto) 0.2 10 ^3/uL (0-0.8) Basophils # (Auto) 0 10 ^3/uL (0-0.2) Nucleated Red Blood Cells 0.0 % Urine Color Colorless (Yellow) Urine Clarity Clear (Clear) Urine pH 6.5 (5.0-9.0) Urine Specific [place] 1.005 (1.001-1.035) Urine Protein Negative (Negative) Urine Ketones Negative (Negative) Urine Blood Negative /uL (Negative) Urine Nitrite Negative (Negative) Urine Bilirubin Negative (Negative) Urine Urobilinogen Normal mg/dL (Negative) Urine Leukocyte Esterase Negative /uL (Negative) Urine RBC <1 /hpf (0 - 4) Urine Microscopic WBC < 1 /HPF (0-5) Urine Squamous Epithelial Cells Few /hpf (<5) Urine Bacteria None seen /hpf (None Seen) Urine Glucose Normal mg/dL (Normal) Prothrombin Time 11.4 sec (9.3-11.8) Prothrombin Time INR 1.08 (0.9-1.15) Activated Partial Thromboplast Time 29.0 SEC (24.5-34.5) Hemoglobin A1c 5.8 % A1C (<5.7) Lactic Acid Level 0.9 mmol/L (0.4-2.0) Phosphorus Level 2.7 mg/dL (2.4-5.1) Magnesium Level 1.9 mg/dL (1.6-2.6) Triglycerides Level 60 mg/dL (< 150) Cholesterol Level 147 mg/dL (< 200) LDL Cholesterol 72 mg/dL (< 100) HDL Cholesterol 54 mg/dL (40-59) Lipase 26 U/L (12-53) CA 19-9 Antigen 16 U/mL (0-35) Vitamin B12 Level 456 pg/mL (211-911) Vitamin D 25-Hydroxy 17.9 ng/mL (30.0-100) Thyroid Stimulating Hormone (TSH) 0.55 uIU/mL (0.55-4.78) Test 05/01/24 13:57 05/01/24 11:50 Troponin I High Sensitivity 5 ng/L (</=34) Urine WBC Clumps Present /hpf (None Seen) Urine Mucus Few (None Seen) Other Laboratory Tests 05/08/24 05:59 05/07/24 06:16 Brief Hx & Hospital Course: 83-year-old female with PMHx of gallstones, COPD, osteoporosis, overactive bladder, and appendectomy presented with 4 days of RUQ pain, nausea, vomiting, and diarrhea. Symptoms improved during admission. Workup revealed leukocytosis (WBC 15.6), elevated total bilirubin 2.6 with mild transaminitis, and CT abdomen concerning for acute cholecystitis with gallbladder distention and pericholecystic fat stranding. MRCP showed multiple stones and 1.4 cm cystic lesion in the pancreatic head suggesting possible IPMN. She underwent laparoscopic cholecystectomy on 05/04/24 without complications. Cardiology cleared her with ECHO showing EF 5560%. No evidence of significant valvular disease. Cultures remained negative. FLAKITO drain removed prior to discharge. Pain controlled with [place]. Medications on Discharge: Ciprofloxacin 500 mg PO BID x 7 days (for UTI) Ibuprofen Amlodipine 5 mg PO daily Losartan 50 mg PO BID Follow-up: General surgery clinic in 2 weeks PCP for further evaluation of pancreatic cystic lesion and vitamin D deficiency Discharge Condition: Stable, tolerating diet, ambulating, pain controlled, afebrile. Discharge Instructions: Monitor surgical site for signs of infection Maintain hydration Avoid heavy lifting for 2 weeks Continue medications as prescribed Return if fever, jaundice, worsening pain, or vomiting Case discussed with Dr Escobar Consults/Reason for consult surgery and GI due to acute cholecystitis Operations or Procedures ASSISTANTS: 1. Yfn Garcia NP 2. Alberto Devine MD ANESTHESIA: General endotracheal. Martin Mauro MD PROCEDURES: * Laparoscopy. * Laparoscopic cholecystectomy. DESCRIPTION OF PROCEDURE: Under general endotracheal anesthesia with the patient's skin prepped and draped, a supraumbilical incision was made and Veress needle inserted into the peritoneal cavity by the hanging drop technique to establish pneumoperitoneum to 15 mmHg pressure by insufflation with carbon dioxide. With the abdomen fully distended, the needle was removed and replaced with a 5 mm trocar port through which a 0-degree viewing laparoscope was inserted and under direct vision, a 5 mm port and 10 mm port were inserted through the right anterior axillary line and the subxiphoid skin in the midline respectively. Instrumentation was introduced. Laparoscopy was performed revealing no obvious unexpected pathology on the serosal surfaces visualized. The gallbladder was acutely inflamed. It was placed on tension. The cystic duct and cystic artery were identified and skeletonized, traced into the hepatocystic triangle so as to minimize the potential for inadvertent injury to the common bile duct. The cystic duct was exceedingly short and was difficult to separate from the inflamed surrounding tissues. However, eventually we were able to circumferentially dissect the cystic duct and divide it between metallic clips close to the gallbladder, again protecting the common duct from injury. The cystic artery and cystic duct having been divided, the gallbladder was aspirated of inspissated bile which was submitted for cultures and sensitivities and the gallbladder was resected from its liver bed by electrocautery and traction. The fully mobilized gallbladder was retrieved from the peritoneal cavity by placement in a specimen extraction bag which was removed through the subxiphoid 10 mm port site. Right upper quadrant was then profusely irrigated, irrigant was aspirated. Due to much inflammation, a 10 mm [place] drain was placed underneath the right lobe of the liver and exteriorized through the 5 mm port site on the right flank, secured with a 2-0 nylon suture. Following assurance of complete hemostasis, there not being any bleeding from either the port sites or from the cholecystectomy site, the instrumentation was withdrawn, pneumoperitoneum was evacuated, fascial defect closed using 0 Vicryl, wounds approximated using 2-0 Monocryl sutures, Dermabond glue, and Steri-Strips. The patient remained stable throughout the procedure, left the operating room following an accurate needle and sponge count. Her family was informed by phone. Angelica Weir was reached at [phone]. 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 #Complicated UTI #Chronic obstructive uropathy; self catheterization #Hypertensive crisis; resolved #Hypokalemia #Constipation #Vitamin D deficiency #Transaminitis #Hyperbilirubinemia Discharge Disposition: Home Discharge Instruct/Medications Diet: Consistent carbohydrate, Cardiac 2g Na,low cholest Activity: Light activity Follow Up/Referral: f/u with dr delacruz 1 week dc clinic Medications: see prescription Discharge Statement: "Patient was advised to return to the ER or call 911 if any headaches, dizziness, shortness of breath, chest pain, abdominal pain, bleeding, fevers, or worsening of medical condition. Patient was counseled about treatment plan, medications, possible side effects, patientverbalized understanding. All questions were answered to the best of my ability. This discharge took greater then 30 minutes in planning, reviewing documentation, counseling the patient, and discussing with other team members." ASSESSMENT ASSESSMENT Assessment s/p cholecystectomy Date of Service: May 08, 2024 Billing Provider: LISA ESCOBAR MD Common Visit Codes: [id number] DISCH DAY >30min SAMRA ARMAS RESIDENT May 08, 2024 13:25 LISA ESCOBAR MD May 08, 2024 22:50
== END 2024-05-08 15:30 | disposition home or self-care (01) | DRG 854 ==
LOC: EDBD 11:05 → ER 11:05 → OVERFLOW 16:34 → EAST 17:55 → TELE-EAST 05-04 10:26
PROVIDERS: ADMIT Internal Medicine; ATTEND Internal Medicine
PROC: 0FT44ZZ Resection of Gallbladder, Percutaneous Endoscopic Approach (ICD-10-PCS; principal; 2024-05-04 07:29)
DX: A41.9 Sepsis, unspecified organism (principal); I16.9 Hypertensive crisis, unspecified; N39.0 Urinary tract infection, site not specified; K86.2 Cyst of pancreas; K80.00 Calculus of gallbladder with acute cholecystitis without obstruction; E87.6 Hypokalemia; E66.9 Obesity, unspecified; K59.00 Constipation, unspecified; E55.9 Vitamin D deficiency, unspecified; E80.6 Other disorders of bilirubin metabolism; J44.9 Chronic obstructive pulmonary disease, unspecified; I16.0 Hypertensive urgency; M81.0 Age-related osteoporosis without current pathological fracture; N13.9 Obstructive and reflux uropathy, unspecified; D13.6 Benign neoplasm of pancreas; I10 Essential (primary) hypertension; R74.01 Elevation of levels of liver transaminase levels; K57.30 Diverticulosis of large intestine without perforation or abscess without bleeding; Z82.49 Family history of ischemic heart disease and other diseases of the circulatory system; Z79.899 Other long term (current) drug therapy; Z90.49 Acquired absence of other specified parts of digestive tract; Z68.30 Body mass index [BMI] 30.0-30.9, adult
CPT/HCPCS: 36415; 71045; 74176; 74177; 74181; 76705; 80053; 80061; 81001; 82306; 82607; 83036; 83605; 83690; 83735; 84100; 84443; 84484; 85025; 85610; 85730; 86301; 86850; 86900; 86901; 87040; 87070; 87075; 87086; 87088; 87186; 87205; 93005; 93306; 96365; 96375; 99291; G0378; J0330; J1100; J2003; J2250; J2405; J2470; J2543; J2704; J3490